=== PATIENT | female | born 1950 | race Hispanic/Latino ===

== ENCOUNTER 2020-07-01 12:18 | Emergency (ER) | payer MEDICARE, BC ==
[~2020-07-01] VITALS: Ht 152.4 cm; Wt 57.6 kg
--- NOTE | 2020-07-01 12:36 | Emergency Department Note ---
History of Present Illnes History of Present Illness Chief Complaint: General Medicine Complaints History of Present Illness This is a 69 year old female Chief Complaint Comment Patient in from home with reports of head and neck pain that started after a mechanical slip and fall at home. Patient denies LOC, dizziness, and use of blood thinners. Patient reports she had a large "goose egg" on the back of her head. 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 Any updates have been documented here. Past Medical History Recent Fever: No Clinical Suspicion of Infectio: No New/Unexplained Change in Ment: No Past Medical History: Hypertension, CVA, TIA, Hypothyroidism, Hyperlipedemia Past Surgical History: Cholecysctectomy, Appendectomy, Hysterectomy Other Surgery: Ovarian cyst removal at age 19 Other Any Pre-Existing Lines (PICC,: No Review of Systems Review of Systems Constitutional: Reports no symptoms EENTM: Reports as per HPI Cardiovascular: Reports no symptoms Respiratory: Reports no symptoms Gastrointestinal: Reports no symptoms Genitourinary: Reports no symptoms Musculoskeletal: Reports no symptoms Integumentary: Reports no symptoms Neurological: Reports no symptoms Psychological: Reports no symptoms Endocrine: Reports no symptoms Hematological/Lymphatic: Reports no symptoms Physical Exam Related Data Allergies: Coded Allergies: iodine (Verified Allergy, Severe, hives, 07/01/20) prednisone (Verified Allergy, Intermediate, hives, 07/01/20) codeine (Verified Allergy, Unknown, 07/01/20) Triage Vital Signs Vital Signs Date Time Temp Pulse Resp B/P (MAP) Pulse Ox O2 Delivery O2 Flow Rate FiO2 07/01/20 12:23 98.2 58 16 138/57 100 Room Air Vital signs reviewed: Yes Physical Exam CONSTITUTIONAL Constitutional: Present well-developed, Present well-nourished HENT HENT: Present normocephalic, Present oropharynx clear/moist, Present nose normal; Absent atraumatic (Mild bump to posterior head/occipital scalp) HENT L/R: Present left ext ear normal, Present right ext ear normal EYES Eyes: Reports PERRL, Reports conjunctivae normal NECK Neck: Present ROM normal PULMONARY Pulmonary: Present effort normal, Present breath sounds normal CARDIOVASCULAR Cardiovascular: Present regular rhythm, Present heart sounds normal, Present capillary refill normal, Present normal rate GASTROINTESTINAL Abdominal: Present soft, Present nontender, Present bowel sounds normal GENITOURINARY Genitourinary: Present exam deferred SKIN Skin: Present warm, Present dry MUSCULOSKELETAL Musculoskeletal: Present ROM normal NEUROLOGICAL Neurological: Present alert, Present oriented x 3, Present no gross motor or sensory deficits PSYCHOLOGICAL Psychological: Present mood/affect normal, Present judgement normal Assessment & Plan Medical Decision Making MDM 69 y.o F presents for mechanical fall with head injury. She slipped on water in the kitchen and hit the back of her head. Denies LoC, no thinners. Exam shows mild hematoma to posterior scalp. Ct brain/c-spine shows no sig findings. Doubt emergent process at this time. Appropriate for DC Reassessment Reassessment time: 12:43 Reassessment Well appearing, NAD Assessment & Plan Final Impression: (1) Head contusion Depart Disposition: HOME, SELF-CARE Last Vital Signs Date Time Temp Pulse Resp B/P (MAP) Pulse Ox O2 Delivery O2 Flow Rate FiO2 07/01/20 12:23 98.2 58 16 138/57 100 Room Air HUGO OLGUIN MD Jul 01, 2020 12:36
[2020-07-01] MEDS ORDERED: FENTANYL CITRATE/PF 100MCG/2 ML INJ IV ONE (12:45)
--- NOTE | 2020-07-01 13:37 | Diagnostic Imaging Report ---
EXAMINATION: Head and cervical spine CT without contrast. HISTORY: Status post fall, head trauma, head and neck pain. COMPARISON: None. TECHNIQUE: Multidetector axial images were obtained without contrast from the foramen magnum to the vertex and through the cervical spine. Dose modulation, iterative reconstruction, and/or weight based adjustment of the mA/kV was utilized to reduce the radiation dose to as low as reasonably achievable. HEAD CT FINDINGS: Skull/scalp: Right superior occipitoparietal scalp swelling/hematoma without underlying fractures. Parenchyma: Physiologic calcification of the globi pallidi. Otherwise no areas of abnormal density. No mass, hemorrhage or CT evidence of acute vascular insult. Brain volume: Normal for age. Ventricles: No hydrocephalus or displacement. Arteries: No density suggestive of thrombus. Dural sinuses: No abnormal density. Extra-axial spaces: No abnormal density. Foramen magnum: No mass, Chiari malformation, or basilar invagination. Sella: No obvious mass. Paranasal/mastoid sinuses: Imaged portions unremarkable. CERVICAL SPINE CT FINDINGS: Alignment:Normal alignment and lordosis. Soft tissues: The thyroid gland is not well visualized, it may be hypoattenuating or surgically absent, correlation with past medical history is advised. Vertebrae: Normal height and density. No acute fracture, infection or neoplasm. Degenerative changes: C1-C2: Normal C2-C3: Interbody and posterior fusion. No stenosis. C3-C4: Bilateral facet arthrosis without stenosis. C4-C5: Normal C5-C6: Small disc osteophyte compresses formation and uncovertebral hypertrophy is minimal left. Moderate left foraminal stenosis. C6-C7: Mild uncovertebral and facet hydronephrosis. Minimal foramina narrowing. C7-T1: Normal IMPRESSION: Head CT: 1. No acute postraumatic intracranial hemorrhage. 2. Small right parieto-occipital scalp swelling/hematoma without underlying fractures. Cervical spine CT: 1. No acute fractures or dislocations. 2. Chronic degenerative changes as described. Note: Acute post traumatic spinal cord, vascular or ligamentous injury cannot adequately be assessed with CT. Signed by: Dr. Anne Andujar M.D. on 07/01/2020 1:34 PM
--- OUTSIDE RECORDS SUMMARY | 2020-07-01 14:01 | XMS REPORT | Clinical Summary ---
Author Author BELIA [facility] Address Unknown Phone Unavailable Care Team Providers Care Oxygen Equipment Technician Name Role Phone Onel Arellano MD PCP Allergies Comments Active Allergy Reactions Severity Noted Date Codeine Palpitations Low 08/20/2007 Iodine Hives 08/20/2007 Leg cramps Atorvastatin Other (See 02/20/2020 Comments) Prednisone Rash Low 05/15/2019 Medications End Date Status Medication Sig Dispensed Refills Start Date Active cloNIDine HCl (CATAPRES) Take 0.1 mg 3 09/20 0.1 MG tablet by mouth 0 every 8 (eight) hours as needed . Active levothyroxine (SYNTHROID, TAKE 1 TABLET 0 LEVOTHROID) 100 MCG BY MOUTH 9 tablet DAILY IN THE MORNING Active simvastatin (ZOCOR) 20 MG TK 1 T PO 0 09/16 tablet QHS 0 Active aspirin 81 MG EC tablet Take 81 mg by 0 mouth daily. Active ALPRAZolam (XANAX) 0.25 Take 0.25 mg 0 MG tablet by mouth every night as needed for Anxiety. Active hydrALAZINE (APRESOLINE) Take 25 mg by 0 10/16 25 MG tablet mouth 0 nightly. Active olmesartan (BENICAR) 20 Take 20 mg by 0 MG tablet mouth. 0 Active BYSTOLIC 5 mg tablet 0 0 02/20/2020 Discontinued valsartan (DIOVAN) 320 MG TK 1 T PO D 5 07/17 tablet 9 02/20/2020 Discontinued metoprolol (TOPROL-XL) 50 TK 1 T PO QD 3 09/17 MG 24 hr tablet 0 Active Problems Not on file Encounters Care Team Description Date Type Specialty Moises Lagunas MD Hypertension, unspecified type (Primary Dx); Uncontrolled hypertension 02/20/2020 Emergency Emergency Medicine 02/20/2020 Orders Only General Internal Ut dicine 02/20/2020 Travel Quinton Perkins MD Right facial numbness (Primary Dx); Hypertension, uncontrolled; Acute right eye pain; History of anxiety; Hyperlipidemia, unspecified hyperlipidemia type 10/21/2019 Emergency Emergency Medicine 10/21/2019 Travel Ajay Vann MD Elevated blood pressure reading (Primary Dx) 10/16/2019 Emergency Emergency Medicine 10/16/2019 Orders Only General Internal Ut dicine 10/16/2019 Travel after 07/01/2019 Social History Date Tobacco Use Types Packs/Day Years Used Never Smoker Smokeless Tobacco: Never Used Drinks/Week oz/Week Comments Alcohol Use Yes Sex Assigned at Date Recorded Not on file Last Filed Vital Signs Reading Time Taken Comments Vital Sign 145/82 02/20/2020 6:30 AM CDT Blood Pressure 52 02/20/2020 6:30 AM CDT Pulse 36.8 C (98.3 F) 02/20/2020 1:48 AM CDT Temperature 18 02/20/2020 6:30 AM CDT Respiratory Rate 99% 02/20/2020 5:48 AM CDT Oxygen Saturation - - Inhaled Oxygen Concentration 59 kg (130 lb) 02/20/2020 1:48 AM CDT Weight 152.4 cm (5') 02/20/2020 1:48 AM CDT Height 25.39 02/20/2020 1:48 AM CDT Body Mass Index Plan of Treatment Health Maintenance Due Date Last Done Comments BREAST CANCER SCREENING 1950 COLON CANCER SCREENING 1948 COLONOSCOPY Medicare IPPE (WELCOME TO 09/16/2019 MEDICARE) INFLUENZA VACCINE (#1) 2020 07/08/2019, 06/03/2018, 07/04/2017, Additional history exists PNEUMOCOCCAL 65+ YRS Completed 05/10/2015, 03/08/2014 Procedures Comments Procedure Name Priority Date/Time Associated Diag nosis REPORT OF PROCEDURE - 02/24/2020 ENDOSCOPY SCAN 4:31 PM CDT CBC W/PLT COUNT & AUTO STAT 02/20/2020 DIFFERENTIAL 3:44 AM CDT TROPONIN I STAT 02/20/2020 3:44 AM CDT COMPREHENSIVE METABOLIC STAT 02/20/2020 PANEL 3:44 AM CDT CBC W/PLT COUNT & AUTO STAT 02/20/2020 DIFFERENTIAL 3:44 AM CDT ECG 12-LEAD Routine 02/20/2020 1:58 AM CDT Procedure Note - Interface, External Ris In - 02/23/2020 5:48 AM CDT Ventricula r Rate 51 BPM Atrial Rate 51 BPM P-R Interval 194 ms QRS Duration 96 ms Q-T Interval 450 ms QTC Calculatio n(Bazett) 414 ms P Shannon 76 degrees R Shannon -20 degrees T Shannon -10 degrees Sinus bradycardi a Voltage criteria for left ventricula r hypertroph y Nonspecifi c ST and T wave abnormalit y Abnormal ECG When compared with ECG of 0 00:21, No significan t change was found ECG 12-LEAD STAT 02/20/2020 1:58 AM CDT ED ECG INTERPRETATION Routine 02/20/2020 1:48 AM CDT CBC W/PLT COUNT & AUTO STAT 10/21/2019 DIFFERENTIAL 1:33 PM MILK DRIVER CBC W/PLT COUNT & AUTO STAT 10/21/2019 DIFFERENTIAL 1:33 PM MILK DRIVER BASIC METABOLIC PANEL (7) STAT 10/21/2019 1:[address] BRAIN WITHOUT IV STAT 10/21/2019 CONTRAST 11:42 AM MILK DRIVER REPORT OF PROCEDURE - 10/19/2019 ENDOSCOPY SCAN 5:20 PM MILK DRIVER XR CHEST 1 VIEW STAT 10/16/2019 PORTABLE/BEDSIDE 12:56 AM MILK DRIVER ED ECG INTERPRETATION Routine 10/16/2019 12:49 AM MILK DRIVER ECG 12-LEAD Routine 10/16/2019 12:21 AM MILK DRIVER Procedure Note - Interface, External Ris In - 10/16/2019 4:38 AM MILK DRIVER Ventricula r Rate 65 BPM Atrial Rate 65 BPM P-R Interval 194 ms QRS Duration 108 ms Q-T Interval 412 ms QTC Calculatio n(Bazett) 428 ms P Shannon 34 degrees R Shannon -10 degrees T Shannon 22 degrees Normal sinus rhythm Moderate voltage criteria for LVH, may be normal variant T wave abnormalit y, consider anterior ischemia Abnormal ECG When compared with ECG of 17:46, Premature ventricula r complexes are no longer Present ECG 12-LEAD STAT 10/16/2019 12:21 AM MILK DRIVER after 07/01/2019 Results * EKG-SCANNED (02/24/2020 4:31 PM CDT) Only the most recent of 2 results within the time period is included. Narrative Performed At This result has an attachment that is n ot available. * CBC with platelet count + automated diff (02/20/2020 3:44 AM CDT) Only the most recent of 2 results within the time period is included. WBC 10.8 (H) 3.5 - 10.5 K/L [facility] RBC 4.21 3.93 - 5.22 M/L [facility] Hemoglobin 12.7 11.2 - 15.7 GM/DL [facility] Hematocrit 38.8 34.1 - 44.9 % [facility] MCV 92.2 79.4 - 94.8 fL [facility] MCH 30.2 25.6 - 32.2 pg [facility] MCHC 32.7 32.2 - 35.5 GM/DL [facility] RDW 12.2 11.7 - 14.4 % [facility] Platelets 296 150 - 450 K/CU MM [facility] MPV 9.5 9.4 - 12.3 fL [facility] nRBC 0 0 - 0 /100 WBC [facility] % Neutros 52 % [facility] % Lymphs 36 % [facility] % Monos 8 % [facility] % Eos 4 % [facility] % Baso 1 % [facility] # Neutros 5.62 1.56 - 6.13 K/L [facility] # Lymphs 3.90 (H) 1.18 - 3.74 K/L [facility] # Monos 0.82 (H) 0.24 - 0.36 K/L [facility] # Eos 0.40 (H) 0.04 - 0.36 K/L [facility] # Baso 0.05 0.01 - 0.08 K/L [facility] Immature 0 0 - 1 % [facility] Specimen Blood Performing Organization Address [facility] [address] [place] [address] [facility] * Troponin I (02/20/2020 3:44 AM CDT) Troponin I <0.01 0.00 - 0.03 ng/mL [facility] Specimen Blood Narrative Performed At Troponin I (TnI) levels must be interpreted in the co ntext of the presenting [facility] symptoms and the clinical findings. Elevated TnI leve ls indicate myocardial [facility] damage, but are not specific for ischem ic heart disease. Elevated TnI levels are seen in patients with other cardiac con ditions (including myocarditis and congestive heart failure), and slight T nI elevations occur in patients with other conditions, including sepsis, vinod al failure, acidosis, acute neurological disease, and persistent tachyarrhythmia . Diamond Wheel Edger ID - LUPILLO Menon Performing Organization Address [facility] [address] [place] [address] [facility] * Comprehensive metabolic panel (02/20/2020 3:44 AM CDT) Protein, Total 7.6 6.0 - 8.3 gm/dL [facility] Albumin 4.3 3.5 - 5.0 g/dL [facility] Alkaline 84 40 - 150 U/L [facility] Total Bilirubin 0.3 0.2 - 1.2 mg/dL [facility] Sodium 139 136 - 145 meq/L [facility] Potassium 3.7 3.5 - 5.1 meq/L [facility] Chloride 103 98 - 107 meq/L [facility] CO2 27 22 - 29 meq/L [facility] BUN 19 7 - 21 mg/dL [facility] Creatinine 0.74 0.57 - 1.25 mg/dL [facility] Glucose 104 70 - 105 mg/dL [facility] Calcium 10.1 8.4 - 10.2 mg/dL [facility] AST 18 5 - 34 U/L [facility] ALT 17 6 - 55 U/L [facility] EGFR 77Comment: ESTIMATED GFR IS mL/min/1.[address] [facility] NOT ACCURATE CREATININE [facility] CLEARANCE IN PREDICTING MEDICAL CENTER GLOMERULAR FILTRATION RATE. ESTIMATED GFR IS NOT APPLICABLE FOR DIALYSIS PATIENTS. Specimen Blood Narrative Performed At Diamond Wheel Edger ID - LUPILLO W [facility] Performing Organization Address City/State/Zipcode Ph one Number [facility] [address] [place], [place] [address] [facility]ENTER * ECG 12 lead (02/20/2020 1:58 AM CDT) Only the most recent of 2 results within the time period is included. Specimen Narrative Performed At Ventricular Rate 51 BPM [facility] Atrial Rate 51 BPM P-R Interval 194 ms QRS Duration 96 ms Q-T Interval 450 ms QTC Calculation(Bazett) 414 ms P Shannon 76 degrees R Shannon -20 degrees T Shannon -10 degrees Sinus bradycardia Voltage criteria for left ventricular h ypertrophy Nonspecific ST and T wave abnormality Abnormal ECG When compared with ECG of 16-OCT-2019 0 0:21, No significant change was found Confirmed by MD LIMA JOSEPH P ([id number]) on 02/23/2020 7:21:18 AM Procedure Note Interface, External Ris In - 02/23/2020 7:21 AM CDT Ventricular Rate 51 BPM Atrial Rate 51 BPM P-R Interval 194 ms QRS Duration 96 ms Q-T Interval 450 ms QTC Calculation(Bazett) 414 ms P Shannon 76 degrees R Shannon -20 degrees T Shannon -10 degrees Sinus bradycardia Voltage criteria for left ventricular hypertrophy Nonspecific ST and T wave abnormality Abnormal ECG When compared with ECG of 16-OCT-2019 00:21, No significant change was found Confirmed by MD LIMA JOSEPH P ([id number]) on 02/23/2020 7:21:18 AM Performing Organization Address City/State/Zipcode Ph one Number [facility] * ECG/EKG Interpretation (02/20/2020 1:48 AM CDT) Only the most recent of 2 results within the time period is included. Narrative Performed At Moises Lagunas MD 02/29/20 6:18 AM ECG/EKG Interpretation Date/Time: 02/29/2020 6:17 AM Performed by: Moises Lagunas MD Authorized by: Moises Lagunas M D The ECG was interpreted by ED physician . The ECG is interpreted as sinus bradycardia. Conduction: conduction nor mal. ST segments normal. T-wave inversion in lead(s) III and aVF. T-wav e flattening in lead(s) V1, V2 and V3. Shannon is normal. Clinical Impression: abnormal ECGCommen ts: Similar in appearance as 1-20 * Basic Metabolic Panel (10/21/2019 1:33 PM MILK DRIVER) Sodium 143 136 - 145 meq/L [facility] Potassium 4.8 3.5 - 5.1 meq/L [facility] Chloride 110 (H) 98 - 107 meq/L [facility] CO2 25 22 - 29 meq/L [facility] BUN 14 7 - 21 mg/dL [facility] Creatinine 0.69 0.57 - 1.25 mg/dL [facility] Glucose 101 70 - 105 mg/dL [facility] Calcium 9.9 8.4 - 10.2 mg/dL [facility] EGFR 84Comment: ESTIMATED GFR IS mL/min/1.[address] [facility] NOT ACCURATE CREATININE [facility] CLEARANCE IN PREDICTING [facility]ICAL [facility]ENTER GLOMERULAR FILTRATION RATE. ESTIMATED GFR IS NOT APPLICABLE FOR DIALYSIS PATIENTS. Specimen Blood Narrative Performed At Diamond Wheel Edger ID - [facility]OOK[place]NN [facility] Diamond Wheel Edger ID - MARILIN [facility] Performing Organization Address City/State/Zipcode Ph one Number [address] [facility] * CT brain without IV contrast (10/21/2019 11:42 AM MILK DRIVER) Specimen Narrative Performed At FINAL REPORT [facility] CT, BRAIN, WITHOUT CONTRAST INDICATION: EYE PAIN EYE PAIN, FACIAL NUMBNESS TECHNIQUE: Noncontrast axial imaging wa s obtained from the vertex to the skull base. Axial images were recon structed using a bone algorithm. DOSE REDUCTION: Dose modulation, iterat pablo reconstruction, and/or weight-based adjustment of the mA/kV wa s utilized to reduce the radiation dose to as low as reasonably achievable. COMPARISON: None. FINDINGS: Cerebral parenchyma: Diffuse parenchyma l volume loss. Appearance of the white matter suggests chronic micro vascular disease. Midline structures: Normally positioned . Cerebellum and brainstem: Commensurate volume loss. Ventricles: Normal volume. Extra-axial spaces: Unremarkable. Calvarium and skull base: Intact. Paranasal sinuses and mastoid air cells : Visible chambers are clear. Orbital contents: Included portions unr emarkable. Additional findings: None. IMPRESSION: Chronic involutional changes without ac [place] intracranial abnormality. If there is persistent clinical concern for intracranial pathology, MR examination is recommended for furth er characterization. Signed: JR Jiménez Robert MD Report Verified Date/Time: 10/21/2019 11:42:31 Reading Location: [facility] C013 Neuro Re ading Room Procedure Note Interface, External Ris In - 10/21/2019 11:44 AM MILK DRIVER FINAL REPORT CT, BRAIN, WITHOUT CONTRAST INDICATION: EYE PAIN EYE PAIN, FACIAL NUMBNESS TECHNIQUE: Noncontrast axial imaging was obtained from the vertex to the skull base. Axial images were reconstructed using a bone algorithm. DOSE REDUCTION: Dose modulation, iterative reconstruction, and/or weight-based adjustment of the mA/kV was utilized to reduce the radiation dose to as low as reasonably achievable. COMPARISON: None. FINDINGS: Cerebral parenchyma: Diffuse parenchymal volume loss. Appearance of the white matter suggests chronic microvascular disease. Midline structures: Normally positioned. Cerebellum and brainstem: Commensurate volume loss. Ventricles: Normal volume. Extra-axial spaces: Unremarkable. Calvarium and skull base: Intact. Paranasal sinuses and mastoid air cells: Visible chambers are clear. Orbital contents: Included portions unremarkable. Additional findings: None. IMPRESSION: Chronic involutional changes without acute intracranial abnormality. If there is persistent clinical concern for intracranial pathology, MR examination is recommended for further characterization. Signed: JR Jiménez Robert MD Report Verified Date/Time: 10/21/2019 11:42:31 Reading Location: [address] Neuro Reading Room Performing Organization Address City/State/Zipcode Ph one Number [facility] * XR chest 1 view portable / bedside (10/16/2019 12:56 AM MILK DRIVER) Specimen Narrative Performed At FINAL REPORT [facility] INDICATION: PALPITATIONS COMPARISON: 01/21/2006 TECHNIQUE: Single frontal view of the c hest. FINDINGS: Lungs and pleura: Mildly hypoinflated l ungs without consolidation. No effusion. Heart and mediastinum: Normal heart siz e. Unremarkable mediastinal contours. Osseous structures: No acute abnormalit y. Other: None. IMPRESSION: No acute intrathoracic abnormality. Signed: Katharine Calle MD Report Verified Date/Time: 10/16/2019 01:12:57 Procedure Note Interface, External Ris In - 10/16/2019 1:15 AM MILK DRIVER FINAL REPORT INDICATION: PALPITATIONS COMPARISON: 01/21/2006 TECHNIQUE: Single frontal view of the chest. FINDINGS: Lungs and pleura: Mildly hypoinflated lungs without consolidation. No effusion. Heart and mediastinum: Normal heart size. Unremarkable mediastinal contours. Osseous structures: No acute abnormality. Other: None. IMPRESSION: No acute intrathoracic abnormality. Signed: Katharine Calle MD Report Verified Date/Time: 10/16/2019 01:12:57 Performing Organization Address City/State/Zipcode Ph one Number [facility] after 07/01/2019 Insurance Type Payer Benefit Subscriber ID Effective Phone Address Plan / Dates Group [employer] KELSEYCARE [id number] 2019-P MEDICARE resent ADV PPO BLUE CROSS/BLUE SHIELD BCBS FED [id number] 2007-P [address] [place] [address] DAVID johnie (Home) [place] [address]
--- OUTSIDE RECORDS SUMMARY | 2020-07-01 14:01 | XMS REPORT | Continuity of Care Document ---
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 LEFT SIDED NUMBNESS Active 08/27/2019 [facility] 786.50 Active 12/04/2012 [facility] UNK Active 0 12/04/2012 [facility] PVC Active 0 11/10/2012 [facility] HYPERTENSION Active 10/20/2012 [facility] Cholecystectomy Active Problem 12/07/2012 [facility] [place] HTN - Hypertension Resolved Problem 12/07/2012 [facility] [place] Hysterectomy Active Problem 12/07/2012 [facility] Palpitations Resolved Problem 12/07/2012 [facility] [place] Suspension of bladder Active Problem 12/07/2012 [facility] [place] Cholecystectomy (procedure) Ac tive Problem [facility] Hypertensive disorder, systemic arterial (disorder) Active Problem 08/29/2019 [facility] Hyperlipidemia (disorder) Acti ve Problem [facility] Hypothyroidism (disorder) Acti ve Problem [facility] Hysterectomy (procedure) Active Problem 08/29/2019 [facility] Palpitations (finding) Resolved Problem 08/29/2019 [facility] Cystopexy (procedure) Active Problem 08/29/2019 [facility] ANESTHESIA OF SKIN Active [facility] Medications Medication Details Route Status Patient Instructions Ordering Provider Order Date Source Synthroid Notes: (Same as:Levo throid, Synthroid) No Longer Active 08/28/2019 [facility] Simvastatin Notes: (Same as: Z ocor) Inactive 08/28/2019 [facility] Amlodipine Notes: (Same as: No rvasc) Inactive 08/27/2019 [facility] Aspirin 81 MG Chewable Tablet Notes: Take with food. Inactive 08/27/2019 [facility] metoprolol tartrate Notes: (Sa me as: Lopressor) Inactive 08/27/2019 [facility] valsartan Notes: Same as Diovan Inactive 08/27/2019 [facility] Saline Flush 0.9% Notes: (Same as: BD Posiflush) Inactive 08/27/2019 [facility] Amlodipine 2.5 mg, PO, Daily, 0 Refill(s) Active 08/27/2019 [facility] valsartan 320 mg oral tablet 3 20 mg = 1 tab, PO, Daily, # 30 tab, 0 Refill(s) Active 08/27/2019 [facility] Simvastatin 20 mg, PO, Bedtime , # 30 tab, 0 Refill(s) Active 08/27/2019 [facility] Saline Flush 0.9% Notes: (Same as: BD Posiflush) Inactive 08/27/2019 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 Diovan 160 mg, 1 tab, Route: P O, Drug form: TAB, Daily, Dosing Weight 59.545, kg, Start date: 11/19/12 9:00:00, Duration: 30 day, Stop date: 12/18/12 9:00:00 PO No Longer Active [place] 11/19/2012 [facility]ter Toprol-XL 50 mg oral tablet, extended release 50 mg, 1 tab, Route: PO, Drug form: ERTAB, Daily, Start date: 11/19/12 9:00:00, Duration: 30 day, Stop date: 12/18/12 9:00:00 PO No Longer Active [place] 11/19/2012 [facility] aspirin 81 mg tablet, chewable 81 mg, 1 tab, Route: PO, Drug form: CHEWTAB, Daily, Dosing Weight 59.545, kg, Start date: 11/19/12 9:00:00, Duration: 30 day, Stop date: 12/18/12 9:00:00 PO No Longer Active [place] 11/19/2012 [facility] Synthroid 100 microgram, 1 tab , Route: PO, Drug form: TAB, Q630AM, Dosing Weight 59.545, kg, Start date: 11/19/12 6:30:00, Duration: 30 day, Stop date: 12/18/12 6:30:00 PO No Longer Active [place] 11/19/2012 [facility] Saline Flush 0.9% 5 ml, Route: IVP, Drug Form: INJ, Dosing Weight 59.545, kg, Q12H, Start date: 11/18/12 21:00:00, Duration: 30 day, Stop date: 12/18/12 9:00:00 IVP No Longer Active [place] 11/19/2012 [facility]ter Motrin 400 mg, 1 tab, Route: P O, Drug form: TAB, Q4H, Dosing Weight 59.545, kg, PRN Pain, Start date: 11/18/12 17:53:00, Duration: 30 day, Stop date: 12/18/12 17:52:00 PO No Longer Active [facility] 11/18/2012 [facility] nter morphine Sulfate 2 mg, 1 mL, R oute: IV, Drug form: INJ, Q1H, Dosing Weight 59.545, kg, PRN Pain, Start date: 11/18/12 11:15:00, Duration: 30 day, Stop date: 12/18/12 12:14:00 IV No Longer Active [place] 11/18/2012 [facility] nitroglycerin SL Tab 0.4 mg, 1 tab, Route: SL, Drug form: TAB, Q5Min, Dosing Weight 59.545, kg, PRN Chest Pain, Start date: 11/18/12 10:13:00, Duration: 3 doses or times, Stop date: 11/19/12 0:00:00 SL No Longer Active [place] 11/18/2012 [facility] Saline Flush 0.9% 5 ml, Route: IVP, Drug Form: INJ, Dosing Weight 59.545, kg, PRN, PRN Line Flush, Start date: 11/18/12 10:13:00, Duration: 30 day, Stop date: 12/18/12 11:12:00 IVP No Longer Active [place] 11/18/2012 [facility] influenza virus vaccine, inactivated 0.5 mL, Route: IM, Drug Form: INJ, Start date: 11/18/12 9:00:00, Stop date: 11/18/12 9:00:00 IM No Longer Active SYSTEM 01/2013 [facility] Metoprolol Tartrate 50 mg oral tablet 50 mg, 1 tab, PO, Daily, Substitution Allowed PO Active [place] 11/18/2012 [facility] nter K-Dur 20 40 mEq, 2 tab, Route: PO, Drug form: ERTAB, ONCE, Dosing Weight 61.364, kg, Priority: STAT, Start date: 10/21/12 21:43:00, Stop date: 10/21/12 21:43:00 PO No Longer Active [facility] 10/22/2012 [facility] magnesium sulfate 1 gm, 100 mL , Route: IV, Drug form: INJ, ONCE, Dosing Weight 61.364, kg, Priority: STAT, Start date: 10/21/12 21:43:00, Stop date: 10/21/12 21:43:00 IV No Longer Active [facility] 10/22/2012 [facility] Xanax 0.5 mg oral tablet 0.5 m g, 2 tab, Route: PO, Drug form: TAB, ONCE, Dosing Weight 61.364, kg, Start date: 10/21/12 20:12:00, Stop date: 10/21/12 20:12:00 PO No Longer Active [facility] 10/22/2012 [facility] metoprolol tartrate 25 mg, 1 t ab, Route: PO, Drug form: TAB, ONCE, Dosing Weight 61.364, kg, Priority: STAT, Start date: 10/21/12 20:12:00, Stop date: 10/21/12 20:12:00 PO No Longer Active [facility] 10/22/2012 [facility] Saline Flush 0.9% 5 mL, Route: IVP, Drug Form: INJ, Dosing Weight 61.364, kg, Q8H, PRN Line Flush, Start date: 10/21/12 20:10:00, Duration: 30 day, Stop date: 11/20/12 20:09:00, Administer at least once every 8 hoursAdminister at least once every 8 hours IVP No Longer Active [facility] 10/22/2012 [facility] Allergies, Adverse Reactions, Alerts Substance Category Reaction Severity Reaction type Status Date Reported Comments Source codeine Assertion Drug allergy Active [facility] iodine Assertion Drug allergy Active [facility] predniSONE Assertion Drug allergy Active [facility] Immunizations Immunization Date Given Site Status Last Updated Comments Source influenza virus vaccine, inactivated 11/18/2012 Not Given Rosy [facility] Results Order Name Results Value Reference Range Date Interpretation Comments Source CARDIAC ENZYMES Troponin-I <0.02 0.00 - 0.40 08/27/2019 [facility] CARDIAC ENZYMES Troponin-I <0.02 0.00 - 0.40 08/27/2019 [facility] LIPIDS Trig 151 <=149 mg/dL 08/27/2019 [facility] LIPIDS Chol 143 <=199 mg/dL 08/27/2019 [facility] LIPIDS HDL 49 >=61 mg/dL 08/27/2019 [facility] LIPIDS CHD Risk 2.92 3.90 - 5.80 08/27/2019 [facility] LIPIDS LDL (Calculated) 64 <=99 mg/dL 08/27/2019 [facility] LIPIDS VLDL 30 08/27/2019 [facility] URINE AND STOOL UA Turbidity Clear (08/27/19 3:14 AM) Clear 08/27/2019 [facility] URINE AND STOOL UA Spec Grav 1.005 <=1.030 08/27/2019 [facility] URINE AND STOOL UA pH 7.0 5.0 - 8.0 08/27/2019 [facility] URINE AND STOOL UA Protein Negative mg/dL Negative mg/dL 08/27/[address] [facility] [address] URINE AND STOOL UA Glucose Negative mg/dL Negative mg/dL 08/27/[address] [facility] [address] URINE AND STOOL UA Ketones Negative mg/dL Negative mg/dL 08/27/[address] [facility] [address] URINE AND STOOL UA Bili Negative *NA* (08/27/19 3:14 AM) Negative 08/27/2019 [facility] URINE AND STOOL UA Blood Small *ABN* (08/27/19 3:14 AM) Negative 08/27/2019 [facility] URINE AND STOOL UA Nitrite Negative (08/27/19 3:14 AM) Negative 08/27/2019 [facility] URINE AND STOOL UA Leuk Est Negative (08/27/19 3:14 AM) Negative 08/27/2019 [facility] URINE AND STOOL UA Sq Epi Occasional /LPF Few /LPF 08/27/2019 [facility] URINE AND STOOL UA WBC <1 0 - 5 08/27/2019 [facility] URINE AND STOOL UA RBC 1 0 - 2 08/27/2019 [facility] URINE AND STOOL UA Color Colorless 08/27/2019 [facility] URINE AND STOOL UA Urobilinogen <=1.0 mg/dL 0.1 - 1.0 08/27/2019 [facility] CARDIAC ENZYMES BNP 12 <=100 pg/mL 08/27/2019 [facility] CARDIAC ENZYMES Total CK 111 12 - 191 08/27/2019 [facility] CARDIAC ENZYMES Troponin-I <0.02 0.00 - 0.40 08/27/2019 [facility] CHEM PANEL Glucose Lvl 101 70 - 99 08/27/2019 [facility] CHEM PANEL BUN 17 7 - 22 08/27/2019 [facility] CHEM PANEL Creatinine Lvl 0.68 0.50 - 1.40 08/27/2019 [facility] CHEM PANEL Sodium Lvl 145 135 - 145 08/27/2019 [facility] CHEM PANEL Potassium Lvl 3.5 3.5 - 5.1 08/27/2019 [facility] CHEM PANEL Chloride Lvl 110 95 - 109 08/27/2019 [facility] CHEM PANEL CO2 28 24 - 32 08/27/2019 [facility] CHEM PANEL Calcium Lvl 9.0 8.5 - 10.5 08/27/2019 [facility] CHEM PANEL Total Protein 7.5 6.4 - 8.4 08/27/2019 [facility] CHEM PANEL Albumin Lvl 3.6 3.5 - 5.0 08/27/2019 [facility] CHEM PANEL ALT 31 0 - 65 08/27/2019 [facility] CHEM PANEL AST 15 0 - 37 08/27/2019 [facility] CHEM PANEL Alk Phos 97 39 - 136 08/27/2019 [facility] CHEM PANEL Bili Total 0.2 0.2 - 1.3 08/27/2019 [facility] CHEM PANEL AGAP 10.5 10.0 - 20.0 08/27/2019 [facility] CHEM PANEL B/C Ratio 25 6 - 25 08/27/2019 [facility] CHEM PANEL Globulin 3.9 2.7 - 4.2 08/27/2019 [facility] CHEM PANEL A/G Ratio 0.9 0.7 - 1.6 08/27/2019 [facility] CHEM PANEL eGFR 88 08/27/2019 Result Comment: The eGFR is calculated using the CKD-EPI formula. In most young, healthy individuals the eGFR will be >90 mL/min/1.73m2. The eGFR declines with age. An eGFR of 60-89 may be normal in some populations, particularly the elderly, for whom the CKD-EPI formula has not been extensively validated. Use of the eGFR is not recommended in the following populations:

Individuals with unstable creatinine concentrations, including patients and those with serious co-morbid conditions.

Patients with extremes in muscle mass or diet.

The data above are obtained from the National Kidney Disease Education Program (NKDEP) which additionally recommends that when the eGFR is used in patients with extremes of body mass index for purposes of drug dosing, the eGFR should be multiplied by the estimated BMI. [facility] CHEM PANEL Magnesium Lvl 2.0 1.8 - 2.4 08/27/2019 [facility] HEMATOLOGY WBC 8.5 3.7 - 10.4 08/27/2019 [facility] HEMATOLOGY RBC 4.33 4.20 - 5.40 08/27/2019 [facility] HEMATOLOGY Hgb 13.6 12.0 - 16.0 08/27/2019 [facility] HEMATOLOGY Hct 39.6 36.0 - 48.0 08/27/2019 [facility] HEMATOLOGY MCV 91.4 80.0 - 98.0 08/27/2019 [facility] MCH 31.3 27.0 - 31.0 08/27/2019 [facility] HEMATOLOGY MCHC 34.2 32.0 - 36.0 08/27/2019 [facility] HEMATOLOGY RDW 12.5 11.5 - 14.5 08/27/2019 [facility] HEMATOLOGY Platelet 296 133 - 450 08/27/2019 [facility] HEMATOLOGY MPV 7.7 7.4 - 10.4 08/27/2019 [facility] HEMATOLOGY INR 0.97 0.85 - 1.17 08/27/2019 [facility] HEMATOLOGY PT 12.7 12.0 - 14.7 08/27/2019 [facility] HEMATOLOGY PTT 38.6 22.9 - 35.8 08/27/2019 [facility] HEMATOLOGY Segs 36.7 45.0 - 75.0 08/27/2019 [facility] HEMATOLOGY Lymphocytes 46.9 20.0 - 40.0 08/27/2019 [facility] HEMATOLOGY Monocytes 9.1 2.0 - 12.0 08/27/2019 [facility] HEMATOLOGY Eosinophils 6.7 0.0 - 4.0 08/27/2019 [facility] HEMATOLOGY Basophils 0.6 0.0 - 1.0 08/27/2019 [facility] HEMATOLOGY Neutrophils # 3.1 1.5 - 8.1 08/27/2019 [facility] HEMATOLOGY Lymphocytes # 4.0 1.0 - 5.5 08/27/2019 [facility] HEMATOLOGY Monocytes # 0.8 0.0 - 0.8 08/27/2019 [facility] HEMATOLOGY Eosinophils # 0.6 0.0 - 0.5 08/27/2019 [facility] HEMATOLOGY Basophils # 0.1 0.0 - 0.2 08/27/2019 [facility] CHEMISTRY eGFR 92 12/05/2012 NA <sup>1</sup>Result Comment: The eGFR is calculated using the CKD-EPI formula. In most young, healthy individuals the eGFR will be >90 mL/min/1.73m2. The eGFR declines with age. An eGFR of 60-89 may be normal in some populations, particularly the elderly, for whom the CKD-EPI formula has not been extensively validated. Use of the eGFR is not recommended in the following populations:& lt;br/>
Individuals with unstable creatinine concentrations, including patients and those with serious co-morbid conditions.

Patients with extremes in muscle mass or diet.

The data above are obtained from the National Kidney Disease Education Program (NKDEP) which additionally recommends that when the eGFR is used in patients with extremes of body mass index for purposes of drug dosing, the eGFR should be multiplied by the estimated BMI. [facility] CHEMISTRY Glucose Lvl 103 70 - 99 12/05/2012 [place] <sup>2</sup>Interpretive Data: Adult ref erence range values reflect the clinical guidelines
of the [place] [employer]. [facility] CHEMISTRY Potassium Lvl 3.9 3.5 - 5.1 12/05/2012 Normal [facility] CHEMISTRY Sodium Lvl 142 135 - 145 12/05/2012 Normal [facility] CHEMISTRY Creatinine Lvl 0.7 0.5 - 1.4 12/05/2012 Normal [facility] CHEMISTRY CO2 28 24 - 32 12/05/2012 Normal [facility] CHEMISTRY Chloride Lvl 105 95 - 109 12/05/2012 Normal [facility] CHEMISTRY BUN 20 7 - 22 12/05/2012 Normal [facility] CHEMISTRY Calcium Lvl 9.7 8.5 - 10.5 12/05/2012 Normal [facility] CHEMISTRY AGAP 12.9 10.0 - 20.0 12/05/2012 Normal [facility] HEMATOLOGY Platelet 342 133 - 450 12/05/2012 Normal [facility] HEMATOLOGY MPV 7.7 7.4 - 10.4 12/05/2012 Normal [facility] HEMATOLOGY MCH 30.9 27.0 - 31.0 12/05/2012 Normal [facility] HEMATOLOGY MCHC 33.6 32.0 - 36.0 12/05/2012 Normal [facility] HEMATOLOGY RDW 12.6 11.5 - 14.5 12/05/2012 Normal [facility] HEMATOLOGY MCV 91.8 81.0 - 99.0 12/05/2012 Normal [facility] HEMATOLOGY Hct 42.1 36.0 - 48.0 12/05/2012 Normal [facility] HEMATOLOGY RBC 4.58 4.20 - 5.40 12/05/2012 Normal [facility] HEMATOLOGY Hgb 14.2 12.0 - 16.0 12/05/2012 Normal [facility] HEMATOLOGY WBC 7.6 3.7 - 10.4 12/05/2012 Normal [facility] HEMATOLOGY Eosinophils # 0.3 0.0 - 0.5 12/05/2012 [facility] HEMATOLOGY Basophils # 0.0 0.0 - 0.2 12/05/2012 [facility] HEMATOLOGY Lymphocytes # 2.9 1.0 - 5.5 12/05/2012 Normal [facility] HEMATOLOGY Monocytes # 0.6 0.0 - 0.8 12/05/2012 [facility] HEMATOLOGY Eosinophils 3.6 0.0 - 4.0 12/05/2012 [facility] HEMATOLOGY Basophils 0.4 0.0 - 1.0 12/05/2012 Normal [facility] HEMATOLOGY Segs-Bands # 3.7 1.5 - 8.1 12/05/2012 Normal [facility] HEMATOLOGY Monocytes 8.5 2.0 - 12.0 12/05/2012 Normal [facility] HEMATOLOGY Lymphocytes 38.4 20.0 - 40.0 12/05/2012 Normal [facility] HEMATOLOGY Segs 49.1 45.0 - 75.0 12/05/2012 Normal [facility] BLOOD BANK RESULTS ABO/Rh A POS 11/18/2012 Unknown [facility] BLOOD BANK RESULTS Antibody Scrn Negative (11/18/2012 06:00:00) 11/18/2012 Normal [facility] CHEMISTRY Magnesium Lvl 1.9 1.8 - 2.4 11/18/2012 Normal [facility] CHEMISTRY AGAP 12.9 10.0 - 20.0 11/18/2012 Normal [facility] CHEMISTRY eGFR 78 11/18/2012 NA <sup>1</sup>Result Comment: The eGFR is calculated using the CKD-EPI formula. In most young, healthy individuals the eGFR will be >90 mL/min/1.73m2. The eGFR declines with age. An eGFR of 60-89 may be normal in some populations, particularly the elderly, for whom the CKD-EPI formula has not been extensively validated. Use of the eGFR is not recommended in the following populations:& lt;br/>
Individuals with unstable creatinine concentrations, including patients and those with serious co-morbid conditions.

Patients with extremes in muscle mass or diet.

The data above are obtained from the National Kidney Disease Education Program (NKDEP) which additionally recommends that when the eGFR is used in patients with extremes of body mass index for purposes of drug dosing, the eGFR should be multiplied by the estimated BMI. [facility] CHEMISTRY Sodium Lvl 141 135 - 145 11/18/2012 Normal [facility] CHEMISTRY Potassium Lvl 3.9 3.5 - 5.1 11/18/2012 Normal [facility] CHEMISTRY Creatinine Lvl 0.8 0.5 - 1.4 11/18/2012 Normal [facility] CHEMISTRY CO2 27 24 - 32 11/18/2012 Normal [facility] CHEMISTRY BUN 17 7 - 22 11/18/2012 Normal [facility] CHEMISTRY Chloride Lvl 105 95 - 109 11/18/2012 Normal [facility] CHEMISTRY Calcium Lvl 9.7 8.5 - 10.5 11/18/2012 Normal [facility] CHEMISTRY Glucose Lvl 99 70 - 99 11/18/2012 Normal <sup>2</sup>Interpretive Data: Adult ref erence range values reflect the clinical guidelines
of the [place] [employer]. [facility] HEMATOLOGY Platelet 247 133 - 450 11/18/2012 Normal [facility] HEMATOLOGY RDW 12.6 11.5 - 14.5 11/18/2012 Normal [facility] HEMATOLOGY MPV 9.0 7.4 - 10.4 11/18/2012 Normal [facility] HEMATOLOGY RBC 4.54 4.20 - 5.40 11/18/2012 Normal [facility] HEMATOLOGY MCV 92.2 81.0 - 99.0 11/18/2012 Normal [facility] HEMATOLOGY MCHC 33.4 32.0 - 36.0 11/18/2012 Normal [facility] HEMATOLOGY Hgb 14.0 12.0 - 16.0 11/18/2012 Normal [facility] HEMATOLOGY WBC 6.8 3.7 - 10.4 11/18/2012 Normal [facility] HEMATOLOGY Hct 41.9 36.0 - 48.0 11/18/2012 Normal [facility] HEMATOLOGY MCH 30.8 27.0 - 31.0 11/18/2012 Normal [facility] HEMATOLOGY PTT 33.1 22.9 - 35.8 11/18/2012 Normal <sup>4</sup>Interpretive Data: Heparin T herapeutic Range: 57 - 92 Seconds [facility] HEMATOLOGY PT 12.9 12.0 - 14.7 11/18/2012 Normal [facility] HEMATOLOGY INR 0.95 0.85 - 1.17 11/18/2012 Normal <sup>3</sup>Interpretive Data: RECOMMEND ED RANGES FOR PROTIME INR:
2.0-3.0 for most medical and surgical thromboembolic states.
2.5-3.5 for artificial heart valves and recurrent embolism.

INR SHOULD BE USED ONLY FOR PATIENTS ON STABLE ANTICOAGULANT THERAPY. [facility] HEMATOLOGY Lymphocytes # 3.1 1.0 - 5.5 11/18/2012 [facility] HEMATOLOGY Monocytes # 0.6 0.0 - 0.8 11/18/2012 Normal [facility] HEMATOLOGY Eosinophils # 0.3 0.0 - 0.5 11/18/2012 Normal [facility] HEMATOLOGY Eosinophils 3.8 0.0 - 4.0 11/18/2012 Normal [facility] HEMATOLOGY Monocytes 8.6 2.0 - 12.0 11/18/2012 Normal [facility] HEMATOLOGY Segs-Bands # 2.8 1.5 - 8.1 11/18/2012 Normal [facility] HEMATOLOGY Basophils 0.5 0.0 - 1.0 11/18/2012 Normal [facility] HEMATOLOGY Segs 40.9 45.0 - 75.0 11/18/2012 LOW [facility] HEMATOLOGY Lymphocytes 46.2 20.0 - 40.0 11/18/2012 HI [facility] CHEMISTRY Magnesium Lvl 1.7 1.8 - 2.4 10/22/2012 LOW [facility] CHEMISTRY CK MB 1.5 0.5 - 3.6 10/22/2012 Normal [facility] CHEMISTRY Total CK 111 12 - 191 10/22/2012 Normal [facility] CHEMISTRY eGFR 92 10/22/2012 NA <sup>1</sup>Result Comment: The eGFR is calculated using the CKD-EPI formula. In most young, healthy individuals the eGFR will be >90 mL/min/1.73m2. The eGFR declines with age. An eGFR of 60-89 may be normal in some populations, particularly the elderly, for whom the CKD-EPI formula has not been extensively validated. Use of the eGFR is not recommended in the following populations:& lt;br/>
Individuals with unstable creatinine concentrations, including patients and those with serious co-morbid conditions.

Patients with extremes in muscle mass or diet.

The data above are obtained from the National Kidney Disease Education Program (NKDEP) which additionally recommends that when the eGFR is used in patients with extremes of body mass index for purposes of drug dosing, the eGFR should be multiplied by the estimated BMI. [facility] CHEMISTRY AGAP 12.9 10.0 - 20.0 10/22/2012 Normal [facility] CHEMISTRY B/C Ratio 23 6 - 25 10/22/2012 Normal [facility] CHEMISTRY Albumin Lvl 3.9 3.5 - 5.0 10/22/2012 Normal [facility] CHEMISTRY Glucose Lvl 102 70 - 99 10/22/2012 HI <sup>2</sup>Interpretive Data: Adult ref erence range values reflect the clinical guidelines
of the [place] [employer]. [facility] CHEMISTRY Chloride Lvl 107 95 - 109 10/22/2012 Normal [facility] CHEMISTRY Calcium Lvl 9.3 8.5 - 10.5 10/22/2012 Normal [facility] CHEMISTRY CO2 26 24 - 32 10/22/2012 Normal [facility] CHEMISTRY Creatinine Lvl 0.7 0.5 - 1.4 10/22/2012 Normal [facility] CHEMISTRY Sodium Lvl 142 135 - 145 10/22/2012 Normal [facility] CHEMISTRY BUN 16 7 - 22 10/22/2012 Normal [facility] CHEMISTRY Potassium Lvl 3.9 3.5 - 5.1 10/22/2012 Normal [facility] CHEMISTRY Globulin 3.9 2.0 - 4.0 10/22/2012 Normal [facility] CHEMISTRY AST 21 0 - 37 10/22/2012 Normal [facility] CHEMISTRY A/G Ratio 1.0 0.7 - 1.6 10/22/2012 Normal [facility] CHEMISTRY Bili Total 0.3 0.2 - 1.3 10/22/2012 Normal [facility] CHEMISTRY Alk Phos 99 39 - 136 10/22/2012 Normal [facility] CHEMISTRY ALT 38 0 - 65 10/22/2012 Normal [facility] CHEMISTRY Total Protein 7.8 6.4 - 8.4 10/22/2012 Normal [facility] CHEMISTRY Troponin-I <0.02 0.00 - 0.40 10/22/2012 Normal [facility] CHEMISTRY CK MB Index 1.4 0.0 - 2.5 10/22/2012 Normal [facility] HEMATOLOGY RDW 12.9 11.5 - 14.5 10/22/2012 Normal [facility] HEMATOLOGY MCHC 33.5 32.0 - 36.0 10/22/2012 Normal [facility] HEMATOLOGY Platelet 294 133 - 450 10/22/2012 Normal [facility] HEMATOLOGY MPV 8.4 7.4 - 10.4 10/22/2012 Normal [facility] HEMATOLOGY Hgb 13.4 12.0 - 16.0 10/22/2012 Normal [facility] HEMATOLOGY RBC 4.34 4.20 - 5.40 10/22/2012 Normal [facility] HEMATOLOGY MCV 92.3 81.0 - 99.0 10/22/2012 Normal [facility] HEMATOLOGY WBC 7.5 3.7 - 10.4 10/22/2012 Normal [facility] HEMATOLOGY Hct 40.0 36.0 - 48.0 10/22/2012 Normal [facility] HEMATOLOGY MCH 30.9 27.0 - 31.0 10/22/2012 Normal [facility] HEMATOLOGY Monocytes # 0.6 0.0 - 0.8 10/22/2012 Normal [facility] HEMATOLOGY Basophils # 0.1 0.0 - 0.2 10/22/2012 Normal [facility] HEMATOLOGY Lymphocytes # 3.6 1.0 - 5.5 10/22/2012 Normal [facility] HEMATOLOGY Segs-Bands # 2.9 1.5 - 8.1 10/22/2012 Normal [facility] HEMATOLOGY Basophils 0.7 0.0 - 1.0 10/22/2012 Normal [facility] HEMATOLOGY Eosinophils 4.1 0.0 - 4.0 10/22/2012 HI [facility] HEMATOLOGY Monocytes 8.3 2.0 - 12.0 10/22/2012 Normal [facility] HEMATOLOGY Lymphocytes 48.4 20.0 - 40.0 10/22/2012 HI [facility] HEMATOLOGY Eosinophils # 0.3 0.0 - 0.5 10/22/2012 Normal [facility] HEMATOLOGY Segs 38.5 45.0 - 75.0 10/22/2012 LOW [facility] Pathology Reports No Data Provided for This Section Diagnostic Reports Report Value Date Source Carotid artery Doppler bilat US PROCEDURE INFORMATION: Exam: US Duplex Bilateral Extracranial Arteries Exam date and time: 08/27/2019 5:01 PM Age: 69 years old Clinical history: /r/o TIA. Left upper extremity pain and lip numbness. TECHNIQUE: Imaging protocol: Real-time Duplex ultrasound scan of the bilateral carotid and vertebral arteries combining garcia scale, color Doppler and spectral waveform analysis. Bilateral exam. COMPARISON: BRAIN WO CONTRAST CT 08/27/2019 2:52 AM TECHNIQUE: Garcia-scale, color Doppler and spectral Doppler of the carotid arteries was performed. Any reported ICA stenoses indirectly reference the distal internal carotid diameter as the denominator for the stenosis measurement, utilizing consensus panel criteria. FINDINGS: RIGHT: Small amount of plaque in the right bulb region. ICA PSV 70 cm/sec CCA PSV 88 cm/sec ICA/CCA ratio 0.79 Vertebral flow is antegrade . External carotid artery is patent. Noted is a isoechoic nodule with possible calcification in the right thyroid lobe measuring 2.1 cm not well evaluated by this study. Recommend correlation with dedicated thyroid ultrasound. LEFT: Small amount of plaque in the left proximal internal carotid artery region. ICA PSV 61 cm/sec CCA PSV 88 cm/sec ICA/CCA ratio 0.69 Vertebral flow is antegrade . External carotid artery is patent. IMPRESSION: 1. No ultrasound evidence for hemodynami harshal significant stenosis to either carotid artery. 2. Isoechoic nodule with possible calcif ication in the right thyroid lobe not well evaluated by this study. Recommend correlation with dedicated thyroid ultrasound. Consensus panel Doppler US criteria for diagnosis of ICA stenosis: Stenosis (%) ICA PSV (cm/sec) ICA/CCA ratio <50 <125 <2.0 50-69 125-230 2.0-4.0 >70 but less than >230 >4.0 near occlusion Near occlusion High, low, or Variable undetectable Vaughn Lowry MD On 08/27/2019 17:56:43; [id number] 08/27/2019 [facility] contrast MRI PROCEDUR E INFORMATION: Exam: MR Head Without Contrast Exam date and time: 08/27/2019 2:35 PM Age: 69 years old Clinical history: Weakness, facial and other: Numbness face and tongue. ; Patient HX: High blood pressure. ; Additional info: /lue pain and lip numbness TECHNIQUE: Imaging protocol: MR of the head without contrast. COMPARISON: BRAIN WO CONTRAST CT 08/27/2019 2:52 AM FINDINGS: Brain: There is no acute cortical infarct, parenchymal hemorrhage or an intra-axial mass. 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 Ventricles: There is a minute cavum septum pellucidum. There is no hydrocephalus. Bones/joints: Unremarkable. Soft tissues: Unremarkable. Sinuses: Normal as visualized. No acute sinusitis. Mastoid air cells: Normal as visualized. No mastoid effusion. Orbits: Unremarkable. Sella: Sellar and parasellar structures are normal. There is no cerebellar tonsillar ectopia. Other vasculature: There is normal flow from the 4th portions of both vertebral arteries, the basilar artery and intracranial carotid arteries. IMPRESSION: There is no acute cortical infarct, parenchymal hemorrhage or an intra-axial mass. 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 Total DLP: 982.82 mGy-cm Radiation optimization: All CT scans at this facility use at least one of these dose optimization techniques: automated exposure control; mA and/or kV adjustment per patient size (includes targeted exams where dose is matched to clinical indication); or iterative reconstruction. COMPARISON: No relevant prior studies available. FINDINGS: Brain: Normal. No hemorrhage. Unremarkable white matter. No mass effect. Ventricles: Normal. No ventriculomegaly. Bones/joints: Unremarkable. No acute fracture. Sinuses: Visualized sinuses are unremarkable. No fluid levels. Mastoid air cells: Visualized mastoid air cells are well aerated. Soft tissues: Unremarkable. IMPRESSION: No acute intracranial abnormality. Wilbur Frazier MD On 08/27/2019 03:04:19; [id number] 08/27/2019 [facility] Chest 1view DX PROCEDURE INFOR MATION: Exam: XR Chest, 1 View Exam date and time: 08/27/2019 3:17 AM Age: 69 years old Clinical history: Pain; Additional info: Chest pain/left arm pain TECHNIQUE: Imaging protocol: XR of the chest Views: 1 view. Portable AP view COMPARISON: No relevant prior studies available. FINDINGS: Lungs: No consolidation. A 4 mm left lower lobe calcified granuloma is suggested. Pleural space: No pleural effusion. No pneumothorax. Heart/Mediastinum: Heart shadow is within normal limits. Vasculature: The pulmonary vasculature is unremarkable. Bones/joints: Unremarkable. Other findings: None IMPRESSION: No acute cardiopulmonary findings. Jojo Cohn MD On 08/27/2019 03:39:09; [id number] 08/27/2019 [facility] Consultation Notes No Data Provided for This Section Discharge Summaries No Data Provided for This Section History and Physicals No Data Provided for This Section Vital Signs Vital Sign Value Date Comments Source Temperature Oral (F) 97.7 F 08/27/2019 [facility] Heart Rate 53 08/27/2019 [facility] Respitory Rate 15 08/27/2019 [facility] Systolic (mm Hg) 150 08/27/2019 [facility] Diastolic (mm Hg) 68 08/27/2019 [facility] Temperature Oral (F) 98.3 F 08/27/2019 [facility] Heart Rate 63 08/27/2019 [facility] Respitory Rate 16 08/27/2019 [facility] Systolic (mm Hg) 143 08/27/2019 [facility] Diastolic (mm Hg) 72 08/27/2019 [facility] Systolic (mm Hg) 145 08/27/2019 [facility] Diastolic (mm Hg) 70 08/27/2019 [facility] Temperature Oral (F) 98 F 08/27/2019 [facility] Heart Rate 61 08/27/2019 [facility] Respitory Rate 17 08/27/2019 [facility] Height 154.94 cm 08/27/2019 [facility] Weight 60.455 08/27/2019 [facility] BMI Calculated 25.18 08/27/2019 [facility] Height 154.94 cm 08/27/2019 [facility] BMI Calculated 25.18 08/27/2019 [facility] Weight 60.455 08/27/2019 [facility] Height 154.94 cm 12/05/2012 [facility] Weight 61.364 12/05/2012 [facility] Systolic (mm Hg) 117 11/19/2012 [facility] Respitory Rate 16 11/19/2012 [facility] Temperature Oral (F) 97.8 F 11/19/2012 [facility] Diastolic (mm Hg) 56 11/19/2012 [facility] Systolic (mm Hg) 108 11/19/2012 [facility] Diastolic (mm Hg) 56 11/19/2012 [facility] Systolic (mm Hg) 123 11/19/2012 [facility] Diastolic (mm Hg) 59 11/19/2012 [facility] Temperature Oral (F) 97.2 F 11/19/2012 [facility] Temperature Oral (F) 97 F 11/18/2012 [facility] Weight 59.545 11/18/2012 [facility] Height 154.94 cm 11/18/2012 [facility] Weight 61.364 10/22/2012 [facility] Height 154.94 cm 10/22/2012 [facility] Encounters Location Location Details Encounter Type Encounter Number Reason For Visit Attending Provider ADM Date DC Date Status Source [facility] Emergency [id number] DORINA JIMÉNEZ 10/21/2012 10/22/2012 Discharged [facility] STEPHEN [id number] SONNY SALAZAR 11/18/2012 11/19/2012 Discharged [facility] STEPHEN [id number] COLT RYAN 12/05/2012 12/05/2012 Discharged [facility] Observation [id number] Mathieu Lopez 08/27/2019 08/28/2019 [facility] Procedures Procedure Code Date Perfomer Comments Source Abdominal hysterectomy and excision of p eriuterine tissue [id number] [facility] Suspension of bladder [id number] [facility] Abdominal hysterectomy and excision of p eriuterine tissue [id number] [facility] Suspension of bladder [id number] 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 Symptoms now resolved. Rule out stroke/TIA. CT head negative for acute intracranial abnormality. We will order MRI. Consult neurology. Appreciate further recommendations. We will resume home blood pressure medications and titratefor better blood pressure control. Reconcile medications. Per protocol Patient is stable at this time. Anticipate hospitalization for at least one midnight. Discharge home pending clinical improvement. Time spent on H&P greater than 40 minutes. MD Mark Canalesurnist 08/28/2019 [facility] Plan of Care No Data Provided for This Section Social History Social History Date Source Social History TypeResponse Alcohol Current, Type Wine. Frequency: 1-2 times per month. Smoking Status Never smoker; Exposure to Tobacco Smoke None; Cigarette Smoking Last 365 Days No; Reg Smoking Cessation Counseling No entered on: 08/27/19 08/27/2019 [facility] Family History No Data Provided for This Section Advance Directives No Data Provided for This Section Functional Status No Data Provided for This Section
--- OUTSIDE RECORDS SUMMARY | 2020-07-01 14:01 | XMS REPORT | Continuity of Care Document ---
Author Author [facility] t Organization [facility] Address [address] [place] [id number] Phone Unavailable Care Team Providers Care Patient Svcs Mgr Name Role Phone Eileen MEJIAS, Sheryl Sykes PCP Rojelio Waterman Attphys Unavailable Bebo MEJIAS, Adama De Leon Attphys ADAMA LAGUNAS Attphys Unavailable Sadie Moody MD Attphys Sadie MOODY Attphys Unavailable Edwar MEJIAS, Robin Moss Attphys Efe Lopez Attphys Efe Lopez Admphys Payers Payer Name Policy Type Policy Number Effective Date Expiration Date Merle mehreen ALLEGRACAREKELSEYCARE MEDICARE [id number]- [id number] 2019 00:00:00 [facility] BLUE CROSS/BLUE SHIELDBCBS [id number] [place] [id number], [place] [address]HBV [id number] 2007 00:00:00 [facility] Problems Condition Name Condition Details Condition Category Status Onset Date Resolution Date Last Treatment Date Treating Clinician Comments Source OTHER OTHE R Active 08/27/2019 [facility] Active 2019-08-27 00:00:00 2019-08-27 03:41:00 [facility] LEFT SIDED NUMBNESS LEFT SIDED NUMBNESS Active 08/27/2019 [facility] Active 2019-08-27 00:00:00 2019-08-28 15:10:00 [facility] Lew 786.50 786. 50 Active 12/04/2012 [facility] Active 2012-12-04 00:00:00 2012-12-05 07:15:00 [facility] UNK UNK Active 12/04/2012 [facility] Active 2012-12-04 00:00:00 2012-12-04 16:43:00 emorisheryl Lew PVC PVC Active 11/10/2012 [facility] Diagnosis Active 2012-11-10 00:00:00 2012-11-18 05:35:00 [facility] HYPERTENSION HYPE RTENSION Active 10/20/2012 [facility] Active 2012-10-20 08:00:00 2012-10-21 20:37:00 [facility] HTN - Hypertension HTN - Hypertension Resolved Problem 12/07/2012 [facility] Problem Resolved 2012-12-07 22:16:17 [facility] Palpitations Palp itations Resolved Problem 12/07/2012 [facility] Problem Resolved 2012-12-07 22:16:17 [facility] Palpitations (finding) Palp itations (finding) Resolved Problem 08/29/2019 [facility] Problem Resolved 2019-08-29 23:30: 43 [facility] Cholecystectomy Chol ecystectomy Active Problem 12/07/2012 [facility] Problem Active 2012-12-07 22:16:17 [facility] Hysterectomy Hyst erectomy Active Problem 12/07/2012 [facility] Problem Active 2012-12-07 22:16:17 [facility] Suspension of bladder Susp ension of bladder Active Problem 12/07/2012 [facility] Problem Active 2012-12-07 22:16:17 [facility] Cholecystectomy (procedure) Ch olecystectomy (procedure) Active Problem 08/29/2019 [facility] Problem Active 2019-08-29 23:30:43 [facility] Hypertensive disorder, systemic arterial (disorder) Hypertensive disorder, systemic arterial (disorder) Active Problem 08/29/2019 [facility] Active 2019-08-29 23:30:43 [facility] Hyperlipidemia (disorder) Hype rlipidemia (disorder) Active Problem 08/29/2019 [facility] Problem Active 2019-08-29 23:3 0:43 [facility] Hypothyroidism (disorder) Hypo thyroidism (disorder) Active Problem 08/29/2019 [facility] Problem Active 2019-08-29 23:3 0:43 [facility] Hysterectomy (procedure) Hyst erectomy (procedure) Active Problem 08/29/2019 [facility] Problem Active 2019-08-29 23:30:[address] [facility] Cystopexy (procedure) Cyst opexy (procedure) Active Problem 08/29/2019 [facility] Problem Active 2019-08-29 23:30:[address] [facility] ANESTHESIA OF SKIN ANES THESIA OF SKIN Active [facility] Diagnosis Active 2019-08-28 15:10:00 [facility] Allergies, Adverse Reactions, Alerts Allergy Name Allergy Type Status Severity Reaction(s) Onset Date Inacti ve Date Treating Clinician Comments Source Atorvastatin Drug Allergy Active Other (See Comments) 00:00:00 Leg cramps [facility] Prednisone Propensity to adverse reactions Active Rash 05-15 00:00:00 [facility] r Codeine Propensity to adverse reactions Active Palp itations 2007-08-20 00:00:00 [facility] Iodine Propensity to adverse reactions Active Hives 2007-08-20 00 :00:00 [facility] codeine codeine Active [facility] iodine iodine Active [facility] predniSONE predniSONE Active [facility] Social History Social Habit Start Date Stop Date Quantity Comments Source Sex Assigned At [facility] Tobacco use and exposure 2020-02-20 00:00:00 2020-02-20 00:00:00 Gregory r used [facility] Alcohol intake 2020-02-20 00:00:00 2020-02-20 00:00:00 Current drinker of alcohol (finding) [facility] Social History 2019-08-27 12:12:14 2019-08-27 12:12:14 [facility] Smoking Status Start Date Stop Date Source Never smoker [facility] Medications Ordered Medication Name Filled Medication Name Start Date Stop Da te Current Medication? Ordering Clinician Indication Dosage Frequency Signature (SIG) Comments Components Source BYSTOLIC 5 mg tablet 2020-02-18 00:00:00 Yes [facility] olmesartan (BENICAR) 20 MG tablet 2020-02-16 00:00:00 Yes 20mg Take 20 mg by mouth. [facility] aspirin 81 MG EC tablet 2019-10-21 14:51:48 Yes 81mg QD Take 81 mg by mouth daily. [facility] ALPRAZolam (XANAX) 0.25 MG tablet 2019-10-21 14:51:48 Yes .25mg Take 0.25 mg by mouth every night as needed for Anxiety. [facility] hydrALAZINE (APRESOLINE) 25 MG tablet 2019-10-16 00:00:00 Y es 25mg QD Take 25 mg by mouth nightly. [facility] metoprolol (TOPROL-XL) 50 MG 24 hr tablet 10-13 00:00:00 2020-02-20 00:00:00 No TK 1 T PO QD [facility] simvastatin (ZOCOR) 20 MG tablet 2019-09-25 00:00:00 Yes TK 1 T PO QHS [facility] cloNIDine HCl (CATAPRES) 0.1 MG tablet 2019-09-20 00:00:00 Yes .1mg Take 0.1 mg by mouth every 8 (eight) hours as needed . [facility] Synthroid 2019-08-28 12:30:00 No Notes: (Same as:Levothroid, Synthroid) [facility] Simvastatin 2019-08-28 03:00:00 No Notes: ( Same as: Zocor) [facility] Amlodipine 2019-08-27 16:30:00 No Notes: (S salbador as: Norvasc) [facility] Aspirin 81 MG Chewable Tablet 2019-08-27 16:30:00 No Notes: Take with food. [facility] metoprolol tartrate 2019-08-27 16:30:00 No Notes: (Same as: Lopressor) [facility] valsartan 2019-08-27 16:30:00 No Notes: John Rosario [facility] Saline Flush 0.9% 2019-08-27 15:00:00 No Notes: (Same as: BD Posiflush) [facility] Amlodipine 2019-08-27 12:06:00 Yes 2 .5 mg, PO, Daily, 0 Refill(s) [facility] valsartan 320 mg oral tablet 2019-08-27 12:06:00 Yes 320 mg = 1 tab, PO, Daily, # 30 tab, 0 Refill(s) [facility] Simvastatin 2019-08-27 12:06:00 Yes 20 mg, PO, Bedtime, # 30 tab, 0 Refill(s) [facility] Saline Flush 0.9% 2019-08-27 11:10:00 No Notes: (Same as: BD Posiflush) [facility] NS (Bolus) IV 2019-08-27 08:35:00 No 1,000 mL, 1,000 ml/hr, Infuse Over: 0.5 hr, Route: IV, ONCE, Priority: STAT, Dosing Weight 60.455 kg, Start date: 08/27/19 2:35:00 PECAN CLEANER, Stop date: 08/27/19 2:35:00 PECAN CLE[employer]ER [facility] valsartan (DIOVAN) 320 MG tablet 2019-07-28 00:00:00 2020-02 00:00:00 No TK 1 T PO [facility] levothyroxine (SYNTHROID, LEVOTHROID) 100 MCG tablet 2 00:00:00 Yes TAKE 1 TABLET BY MOUTH DAILY IN THE [facility] Diovan 2012-11-19 15:00:00 No Gregory Coates 160 mg, 1 tab, Route: PO, Drug form: TAB, Daily, Dosing Weight 59.545, kg, Start date: 11/19/12 9:00:00, Duration: 30 day, Stop date: 12/18/12 9:00:00 [facility] Toprol-XL 50 mg oral tablet, extended release 2012-11-19 1 5:00:00 No Gregory Coates 50 mg, 1 tab, Route: PO, Drug form: ERTAB, Daily, Start date: 11/19/12 9:00:00, Duration: 30 day, Stop date: 12/18/12 9:00:00 [facility]ett aspirin 81 mg tablet, chewable 2012-11-19 15:00:00 No Gregory Coates 81 mg, 1 tab, Ro [place]: PO, Drug form: CHEWTAB, Daily, Dosing Weight 59.545, kg, Start date: 11/19/12 9:00:00, Duration: 30 day, Stop date: 12/18/12 9:00:00 [facility] Synthroid 2012-11-19 12:30:00 No Gregory Ramos on 100 microgram, 1 tab, Route: PO, Drug form: TAB, Q630AM, Dosing Weight 59.545, kg, Start date: 11/19/12 6:30:00, Duration: 30 day, Stop date: 12/18/12 6:30:00 [facility] Saline Flush 0.9% 2012-11-19 03:00:00 No Gregory Coates 5 ml, Route: IVP, Drug Form: INJ, Dosing Weight 59.545, kg, Q12H, Start date: 11/18/12 21:00:00, Duration: 30 day, Stop date: 12/18/12 9:00:00 [facility] Motrin 2012-11-18 23:53:00 No Yakelin Jaramillo 400 mg, 1 tab, Route: PO, Drug form: TAB, Q4H, Dosing Weight 59.545, kg, PRN Pain, Start date: 11/18/12 17:53:00, Duration: 30 day, Stop date: 12/18/12 17:52:00 [facility] morphine Sulfate 2012-11-18 17:15:00 No Gregory Coates 2 mg, 1 mL, Route: IV, Drug form: INJ, Q1H, Dosing Weight 59.545, kg, PRN Pain, Start date: 11/18/12 11:15:00, Duration: 30 day, Stop date: 12/18/12 12:14:00 [facility] nitroglycerin SL Tab 2012-11-18 16:13:00 No Gregory Coates 0.4 mg, 1 tab, Route: SL, Drug form: TAB, Q5Min, Dosing Weight 59.545, kg, PRN Chest Pain, Start date: 11/18/12 10:13:00, Duration: 3 doses or times, Stop date: 11/19/12 0:00:00 [facility] Saline Flush 0.9% 2012-11-18 16:13:00 No Gregory Coates 5 ml, Route: IVP, Drug Form: INJ, Dosing Weight 59.545, kg, PRN, PRN Line Flush, Start date: 11/18/12 10:13:00, Duration: 30 day, Stop date: 12/18/12 11:12:00 [facility] influenza virus vaccine, inactivated 2012-11-18 15:00:00 No SYSTEM SYSTEM 0.5 mL, Route: IM, Drug Form : INJ, Start date: 11/18/12 9:00:00, Stop date: 11/18/12 9:00:00 [facility] Metoprolol Tartrate 50 mg oral tablet 2012-11-18 13:02:44 Yes Gregory Coates 50 mg, 1 tab, PO, Daily, Substitut ion Allowed [facility] K-Dur 20 2012-10-22 03:43:00 No Asem Souman 40 mEq, 2 tab, Route: PO, Drug form: ERTAB, ONCE, Dosing Weight 61.364, kg, Priority: STAT, Start date: 10/21/12 21:43:00, Stop date: 10/21/12 21:43:00 [facility] magnesium sulfate 2012-10-22 03:43:00 No Asem Souman 1 gm, 100 mL, Route: IV, Drug form: INJ, ONCE, Dosing Weight 61.364, kg, Priority: STAT, Start date: 10/21/12 21:43:00, Stop date: 10/21/12 21:43:00 [facility] Xanax 0.5 mg oral tablet 2012-10-22 02:12:00 No Asem So uman 0.5 mg, 2 tab, Route: PO, Drug form: TAB, ONCE, Dosing Weight 61.364, kg, Start date: 10/21/12 20:12:00, Stop date: 10/21/12 20:12:00 [facility] metoprolol tartrate 2012-10-22 02:12:00 No Asem Souman 25 mg, 1 tab, Route: PO, Drug form: TAB, ONCE, Dosing Weight 61.364, kg, Priority: STAT, Start date: 10/21/12 20:12:00, Stop date: 10/21/12 20:12:00 [facility] Saline Flush 0.9% 2012-10-22 02:10:00 No Mayda Khan 5 mL, Route: IVP, Drug Form: INJ, Dosing Weight 61.364, kg, Q8H, PRN Line Flush, Start date: 10/21/12 20:10:00, Duration: 30 day, Stop date: 11/20/12 20:09:00, Administer at least once every 8 hoursAdminister at least once every [address] [facility] Vital Signs Vital Name Observation Time Observation Value Comments Source Systolic blood pressure 2020-02-20 06:30:00 145 mm[Hg] [facility] Diastolic blood pressure 2020-02-20 06:30:00 82 mm[Hg] [facility] Heart rate 2020-02-20 06:30:00 52 /min [facility] Respiratory rate 2020-02-20 06:30:00 18 /min [facility] Oxygen saturation in Arterial blood by Pulse oximetry 02-19 05:48:00 99 /min [facility] r Body temperature 2020-02-20 01:48:00 36.83 Loly [facility] Body height 2020-02-20 01:48:00 152.4 cm [facility] Body weight 2020-02-20 01:48:00 58.968 kg [facility] BMI 2020-02-20 01:48:00 25.39 kg/m2 [facility] Temperature Oral (F) 2019-08-27 22:08:00 97.7 F [facility] Heart Rate 2019-08-27 22:08:00 [facility] Respitory Rate 2019-08-27 22:08:00 Memori al [facility] Systolic (mm Hg) 2019-08-27 22:08:00 James rial [place] Diastolic (mm Hg) 2019-08-27 22:08:00 Mem o[facility] [place] Temperature Oral (F) 2019-08-27 17:26:00 98.3 F [facility] Heart Rate 2019-08-27 17:26:00 [facility] Respitory Rate 2019-08-27 17:26:00 [facility] [place] Systolic (mm Hg) 2019-08-27 17:26:00 James rial Lew Diastolic (mm Hg) 2019-08-27 17:26:00 Mem orial [facility] Systolic (mm Hg) 2019-08-27 13:51:00 James rial [place] Diastolic (mm Hg) 2019-08-27 13:51:00 Mem orial [facility] Temperature Oral (F) 2019-08-27 13:51:00 98 F [facility] Heart Rate 2019-08-27 13:51:00 [facility] Respitory Rate 2019-08-27 13:51:00 [facility] Height 2019-08-27 12:09:00 154.94 cm [facility] Weight 2019-08-27 12:09:00 [facility] BMI Calculated 2019-08-27 12:09:00 [facility] [place] Height 2019-08-27 08:17:00 154.94 cm [facility] BMI Calculated 2019-08-27 08:17:00 [facility] Weight 2019-08-27 08:17:00 [facility] Height 2012-12-05 12:42:00 154.94 cm [facility] Weight 2012-12-05 12:42:00 [facility] Systolic (mm Hg) 2012-11-19 13:30:00 James rial Lew Respitory Rate 2012-11-19 13:30:00 [facility] [place] Temperature Oral (F) 2012-11-19 13:30:00 97.8 F [facility] Diastolic (mm Hg) 2012-11-19 13:30:00 Mem orial [facility] Systolic (mm Hg) 2012-11-19 09:00:00 James rial [facility] Diastolic (mm Hg) 2012-11-19 09:00:00 Mem orial [facility] Systolic (mm Hg) 2012-11-19 07:00:00 James rial [place] Diastolic (mm Hg) 2012-11-19 07:00:00 Mem orial [facility] Temperature Oral (F) 2012-11-19 01:09:00 97.2 F [facility] Temperature Oral (F) 2012-11-18 12:23:00 97 F [facility] Weight 2012-11-18 11:48:00 [facility] Height 2012-11-18 11:48:00 154.94 cm [facility] Weight 2012-10-22 01:16:00 [facility] Height 2012-10-22 01:16:00 154.94 cm [facility] Procedures Procedure Date / Time Performed Performing Clinician [facility] REPORT OF PROCEDURE - ENDOSCOPY SCAN 2020-02-24 16:31:11 Pro vider, Default Scanning [facility] COMPREHENSIVE METABOLIC PANEL 2020-02-20 03:44:00 Moises Lagunas [facility] TROPONIN I 2020-02-20 03:44:00 Moises Lagunas [facility] CBC W/PLT COUNT & AUTO DIFFERENTIAL 2020-02-20 03:44:00 Moises Lagunas [facility] ECG 12-LEAD 2020-02-20 01:58:15 Unknown, Hl7 Doctor [facility] ED ECG INTERPRETATION 2020-02-20 01:48:41 Moises Lagunas [facility] BASIC METABOLIC PANEL (7) 2019-10-21 13:33:00 Quinton Moody [facility] CBC W/PLT COUNT & AUTO DIFFERENTIAL 2019-10-21 13:33:00 Merle Moody Simi [facility] CT BRAIN WITHOUT IV CONTRAST 2019-10-21 11:42:00 Quinton Moody [facility] REPORT OF PROCEDURE - ENDOSCOPY SCAN 2019-10-19 17:20:15 Pro vider, Default Scanning [facility] XR CHEST 1 VIEW PORTABLE/BEDSIDE 2019-10-16 00:56:00 Soraida Vann [facility] ED ECG INTERPRETATION 2019-10-16 00:49:48 Ajay Vann [facility] ECG 12-LEAD 2019-10-16 00:21:59 Unknown, Hl7 Doctor [facility] Abdominal hysterectomy and excision of periuterine tissue [facility] Suspension of bladder [facility] Abdominal hysterectomy and excision of periuterine tissue [facility] Suspension of bladder [facility] Plan of Care Planned Activity Planned Date Details Comments Source Future Scheduled Test 2020-05-17 00:00:00 INFLUENZA VACCINE (#1) [code = INFLUENZA VACCINE (#1)] [facility] 2019-09-16 00:00:00 Medicare IPPE (WEL COME TO MEDICARE) [code = Medicare IPPE (WELCOME TO MEDICARE)] [facility] Future Scheduled Test 1950 00:00:00 Screening for nanda gnant neoplasm of breast (procedure) [code = 116437954] [facility] Future Scheduled Test 1950 00:00:00 Screening for nanda gnant neoplasm of colon (procedure) [code = 066222767] [facility] Encounters Start Date/Time End Date/Time Encounter Type Admission Type [facility] Care Department Encounter ID Source 2019-08-27 02:08:34 2019-08-27 20:00:00 Outpatient Mathieu Lopez [facility] [id number] 2019-08-27 04:52:00 2019-08-27 04:52:00 Outpatient E [id number] Results Test Description Test Time Test Comments Results Result Comments Source CT CERVICAL SPINE WO 2020-07-01 13:27:00 [facility] 1950 Sex: F [place] [address] Patient Name: YASSINE HERNANDEZ MR #: [id number] : 1950 Age/Sex: 69/F Req #: [id number] Adm Physician: Ordered by: Hugo Waterman MD Report #: [id number] Location: Room/Bed: Procedure: [id number] CT/CT CERVICAL SPINE WO Exam Date: 07/01/20 Exam Time: 1300 REPORT STATUS: Signed EXAMINATION: Head and cervical spine CT without contrast. HISTORY: Status post fall, head trauma, head and neck pain. COMPARISON: None. TECHNIQUE: Multidetector axial images were obtained without contrast from the foramen magnum to the vertex and through the cervical spine. Dose modulation, iterative reconstruction, and/or weight based adjustment of the mA/kV was utilized to reduce the radiation dose to as low as reasonably achievable. HEAD CT FINDINGS: Skull/scalp: Right superior occipitoparietal scalp swelling/hematoma without underlying fractures. Parenchyma: Physiologic calcification of the globi pallidi. Otherwise no areas of abnormal density. No mass, hemorrhage or CT evidence of acute vascular insult. Brain volume: Normal for age. Ventricles: No hydroceph alus or displacement. Arteries: No density suggestive of thrombus. Dural sinuses: No abnormal density. Extra-axial spaces: No abnormal density. Foramen magnum: No mass, Chiari malformation, or basilar invagination. Sella: No obvious mass. Paranasal/mastoid sinuses: Imaged portions unremarkable. CERVICAL SPINE CT FINDINGS: Alignment:Normal alignment and lordosis. Soft tissues: The thyroid gland is not well visualized, it may be hypoattenuating or surgically absent, correlation with past medical history is advised. Vertebrae: Normal height and density. No acute fracture, infection or neoplasm. Degenerative changes: C1-C2: Normal C2-C3: Interbody and posterior fusion. No stenosis. C3-C4: Bilateral facet arthrosis without stenosis. C4-C5: Normal C5-C6: Small disc osteophyte compresses formation and uncovertebral hypertrophy is minimal left. Moderate left foraminal stenosis. C6-C7: Mild uncovertebral and facet hydronephrosis. Minimal foramina narrowing. C7-T1: Normal IMPRESSION: Head CT: 1. No acute postraumatic intracranial hemorrhage. 2. Small right parieto-occipital scalp swelling/hematoma without underlying fractures. Cervical spine CT: 1. No acute fractures or dislocations. 2. Chronic degenerative changes as described. Note: Acute post traumatic spinal cord, vascular or ligamentous injury cannot adequately be assessed with CT. Signed by: Dr. Anne Andujar M.D. on 07/01/2020 1:34 PM Dictated By: ANNE ANDUJAR MD 33 Transcribed By: ZINA on 07/01/201333 COPY TO: HUGO WATERMAN MD CT BRAIN WO 2020-07-01 13:27:00 [facility] 1950 Sex: F [place] [address] Patient Name: YASSINE HERNANDEZ MR #: [id number] : 1950 Age/Sex: 69/F Req #: [id number] [facility] Physician: Ordered by: Hugo Waterman MD Report #: [id number] Location: Room/Bed: Procedure: [id number] CT/CT BRAIN WO Exam Date: 07/01/20 Exam Time: 1300 REPORT STATUS: Signed EXAMINATION: Head and cervical spine CT without contrast. HISTORY: Status post fall, head trauma, head and neck pain. COMPARISON: None. TECHNIQUE: Multidetector axial images were obtained without contrast from the foramen magnum to the vertex and through the cervical spine. Dose modulation, iterative reconstruction, and/or weight based adjustment of the mA/kV was utilized to reduce the radiation dose to as low as reasonably achievable. HEAD CT FINDINGS: Skull/scalp: Right superior occipitoparietal scalp swelling/hematoma without underlying fractures. Parenchyma: Physiologic calcification of the globi pallidi. Otherwise no areas of abnormal density. No mass, hemorrhage or CT evidence of acute vascular insult. Brain volume: Normal for age. Ventricles: No hydrocephalus or displacement. Arteries: No density suggestive of thrombus. Dural sinuses: No abnormal density. Extra-axial spaces: No abnormal density. Foramen magnum: No mass, Chiari malf ormation, or basilar invagination. Sella: No obvious mass. Paranasal/mastoid sinuses: Imaged portions unremarkable. CERVICAL SPINE CT FINDINGS: Alignment:Normal alignment and lordosis. Soft tissues: The thyroid gland is not well visualized, it may be hypoattenuating or surgically absent, correlation with past medical history is advised. Vertebrae: Normal height and density. No acute fracture, infection or neoplasm. Degenerative changes: C1-C2: Normal C2-C3: Interbody and posterior fusion. No stenosis. C3-C4: Bilateral facet arthrosis without stenosis. C4-C5: Normal C5-C6: Small disc osteophyte compresses formation and uncovertebral hypertrophy is minimal left. Moderate left foraminal stenosis. C6-C7: Mild uncovertebral and facet hydronephrosis. Minimal foramina narrowing. C7-T1: Normal IMPRESSION: Head CT: 1. No acute postraumatic intracranial hemorrhage. 2. Small right parieto-occipital scalp swelling/hematoma without underlying fractures. Cervical spine CT: 1. No acute fractures or dislocations. 2. Chronic degenerative changes as described. Note: Acute post traumatic spinal cord, vascular or ligamentous injury cannot adequately be assessed with CT. Signed by: Dr. Anne Andujar M.D. on 07/01/2020 1:34 PM Dictated By: ANNE ANDUJAR MD Electronically S igned By: ANNE ANDUJAR MD on 07/01/201333 Transcribed By: ZINA on 07/01/204 COPY TO: HUGO WATERMAN MD ECG 12 lead 2020-02-23 07:21:20 Interface, [place] xternal Ris In - 02/23/2020 7:21 AM CDTVentricular Rate 51 BPMAtrial Rate 51 BPMP-R Interval 194 msQRS Duration 96 msQ-T Interval 450 msQTC Calculation(Bazett) 414 msP Franklin 76 degreesR Franklin - 20 degreesT Franklin -10 degreesSinus bradycardiaVoltage criteria for left ventricular hypertrophyNonspecific ST and T wave abnormalityAbnormal ECGWhen compared with ECG of 16-OCT-2019 00:21,No significant change was foundConfirmed by MD JANIE, THELMA Stone ([id number]) on 02/23/2020 7:21:18 AM [facility] Troponin I 2020-02-20 04:25:00 Test Item Troponin I (test code = 43759-2) <0.01 0-0.03 ARIADNE (test code = ARIADNE) Troponin I (TnI) levels must be interpreted in the context of the presenting symptoms and the clinical findings. Elevated TnI levels indicate myocardial damage, but are not specific for ischemic heart disease. Elevated TnI levels are seen in patients with other cardiac conditions (including myocarditis and congestive heart failure), and slight TnI elevations occur in patients with other conditions, including sepsis, renal failure, acidosis, acute neurological disease, and persistent tachyarrhythmia.Head Custodian ID - LUPILLO W Lab Interpretation (test code = 99933-1) Normal [facility] Center[facility] [id number] 04:25:00* Test Item Value Reference Range Interpretation Comments TROPONIN I (BEAKER) (test code = 397) < ng/mL 0.00-0.03 Troponin I (TnI) levels must be interpreted in the context of the presenting sym ptoms and the clinical findings. Elevated TnI levels indicate myocardial damage, but are not specific for ischemic heart disease. Elevated TnI levels are seen in patients with other cardiac conditions (including myocarditis and congestive h eart failure), and slight TnI elevations occur in patients with other conditions , including sepsis, renal failure, acidosis, acute neurological disease, and per sistent tachyarrhythmia.Head Custodian ID - LUPILLO WComprehensive metabolic panel 2020-02-20 04:18:00* Test Item Value Reference Range Interpretation Comments Protein, Total (test code = 2885-2) 7.6 6.0- 8.3 gm/dL Albumin (test code = 03689-4) 4.3 g/dL 3.5-5 Alkaline Phosphatase (test code = 6768-6) 84 U/L 40-150 Total Bilirubin (test code = 1974-2) 0.3 mg/dL 0.2-1.2 Sodium (test code = 2951-2) 139 meq/L 136-145 Potassium (test code = 2823-3) 3.7 meq/L 3.5-5.1 Chloride (test code = 2075-0) 103 meq/L 98-107 CO2 (test code = 8-9) 27 meq/L 22-29 BUN (test code = 3094-0) 19 mg/dL 7-21 Creatinine (test code = 2160-0) 0.74 mg/dL 0.57-1.25 Glucose (test code = 2345-7) 104 mg/dL 70-105 Calcium (test code = 25948-1) 10.1 mg/dL 8.4-10.2 AST (test code = 1920-8) 18 U/L 5-34 ALT (test code = 1742-6) 17 U/L 6-55 EGFR (test code = 33279-2) 77 mL/min/1.73 sq m ESTIMATED GFR IS NOT ACCURATE CREATININE CLEARANCE IN PREDICTING GLOMERULAR FILTRATION RATE. ESTIMATED GFR IS NOT APPLICABLE FOR DIALYSIS PATIENTS. ARIADNE (test code = ARIADNE) Head Custodian ID - LUPILLO Menon [facility] CenterCOMPREHENSIVE METABOLIC [id number] 04:18:00* Test Item Value Reference Range Interpretation Comments TOTAL PROTEIN (BEAKER) (test code = 770) 7.6 gm/dL 6.0-8.3 ALBUMIN (BEAKER) (test code = 1145) 4.3 g/dL 3.5-5.0 ALKALINE PHOSPHATASE (BEAKER) (test code = 346) 84 U/L 40-150 BILIRUBIN TOTAL (BEAKER) (test code = 377) 0.3 mg/dL 0.2-1.2 SODIUM (BEAKER) (test code = 381) 139 meq/L 136-145 POTASSIUM (BEAKER) (test code = 379) 3.7 meq/L 3.5-5.1 CHLORIDE (BEAKER) (test code = 382) 103 meq/L 98-107 CO2 (BEAKER) (test code = 355) 27 meq/L 22-29 BLOOD UREA NITROGEN (BEAKER) (test code = 354) 19 mg/dL 7-21 CREATININE (BEAKER) (test code = 358) 0.74 mg/dL 0.57-1.25 GLUCOSE RANDOM (BEAKER) (test code = 652) 104 mg/dL 70-105 CALCIUM (BEAKER) (test code = 697) 10.1 mg/dL 8.4-10.2 AST (SGOT) (BEAKER) (test code = 353) 18 U/L 5-34 ALT (SGPT) (BEAKER) (test code = 347) 17 U/L 6-55 EGFR (BEAKER) (test code = 1092) 77 mL/min/1.73 sq m ESTIMATED GFR IS NOT ACCURATE CREATININE CLEARANCE IN PREDICTING GLOMERULAR FILTRATION RATE. ESTIMATED GFR IS NOT APPLICABLE FOR DIALYSIS PATIENTS. Head Custodian ID - LUPILLO [facility] with platelet count + automated [id number] 04:02:00 * Test Item Value Reference Range Interpretation Comments WBC (test code = 6690-2) 10.8 3.5- 10.5 K/L H RBC (test code = 789-8) 4.21 3.93- 5.22 M/L MCHC (test code = 786-4) 32.7 32.2- 35.5 GM/DL Hematocrit (test code = 4544-3) 38.8 % 34.1-44.9 MCV (test code = 787-2) 92.2 fL 79.4-94.8 MCH (test code = 785-6) 30.2 pg 25.6-32.2 RDW (test code = 788-0) 12.2 % 11.7-14.4 Platelets (test code = 777-3) 296 150- 450 K/CU MM MPV (test code = 82157-3) 9.5 fL 9.4-12.3 nRBC (test code = 413) 0 0- 0 /100 WBC % Neutros (test code = 429) 52 % % Lymphs (test code = 430) 36 % % Monos (test code = 431) 8 % % Eos (test code = 432) 4 % % Baso (test code = 437) 1 % # Neutros (test code = 670) 5.62 1.56- 6.13 K/L # Lymphs (test code = 414) 3.90 1.18- 3.74 K/L H # Monos (test code = 415) 0.82 0.24- 0.36 K/L H # Eos (test code = 416) 0.40 0.04- 0.36 K/L H # Baso (test code = 417) 0.05 0.01- 0.08 K/L Immature Granulocytes-Relative (test code = 2801) 0 % 0-1 Lab Interpretation (test code = 33493-9) [facility]O HLBQVSAOKRCC1715-71-15 04:02:00* Test Item Value Reference Range Interpretation Comments WHITE BLOOD CELL COUNT (BEAKER) (test code = 775) 10.8 K/ L 3.5- 10.5 H RED BLOOD CELL COUNT (BEAKER) (test code = 761) 4.21 M/ L 3.93-5 .22 HEMOGLOBIN (BEAKER) (test code = 410) 12.7 GM/DL 11.2-15.7 HEMATOCRIT (BEAKER) (test code = 411) 38.8 % 34.1-44.9 MEAN CORPUSCULAR VOLUME (BEAKER) (test code = 753) 92.2 fL 79. 4-94.8 MEAN CORPUSCULAR HEMOGLOBIN (BEAKER) (test code = 751) 30.2 pg 25.6-32.2 MEAN CORPUSCULAR HEMOGLOBIN CONC (BEAKER) (test code = 752) 32.7 GM/DL 32.2-35.5 RED CELL DISTRIBUTION WIDTH (BEAKER) (test code = 412) 12.2 % 11.7-14.4 PLATELET COUNT (BEAKER) (test code = 756) 296 K/CU MM 150-450 MEAN PLATELET VOLUME (BEAKER) (test code = 754) 9.5 fL 9.4-12 .3 NUCLEATED RED BLOOD CELLS (BEAKER) (test code = 413) 0 /100 WBC 0 -0 NEUTROPHILS RELATIVE PERCENT (BEAKER) (test code = 429) 52 % LYMPHOCYTES RELATIVE PERCENT (BEAKER) (test code = 430) 36 % MONOCYTES RELATIVE PERCENT (BEAKER) (test code = 431) 8 % EOSINOPHILS RELATIVE PERCENT (BEAKER) (test code = 432) 4 % BASOPHILS RELATIVE PERCENT (BEAKER) (test code = 437) 1 % NEUTROPHILS ABSOLUTE COUNT (BEAKER) (test code = 670) 5.62 K/ L 1.56-6.13 LYMPHOCYTES ABSOLUTE COUNT (BEAKER) (test code = 414) 3.90 K/ L 1.18-3.74 H MONOCYTES ABSOLUTE COUNT (BEAKER) (test code = 415) 0.82 K/ L 0. 24-0.36 H EOSINOPHILS ABSOLUTE COUNT (BEAKER) (test code = 416) 0.40 K/ L 0.04-0.36 H BASOPHILS ABSOLUTE COUNT (BEAKER) (test code = 417) 0.05 K/ L 0. 01-0.08 IMMATURE GRANULOCYTES-RELATIVE PERCENT (BEAKER) (test code = 2801) 0 % 0-1 ECG/EKG Xulsrbmhnpgztu8545-26-70 01:48:41* Test Item Value Reference Range Interpretation Comments ARIADNE (test code = ARIADNE) Moises Lagunas MD 02/29/2020 6:18 AMECG/EKG InterpretationDate/Time: 02/29/2020 6:17 AMPerformed by: Moises Lagunas MDAuthorized by: Moises Lagunas MD The ECG was interpreted by ED physician. The ECG is interpreted as sinus bradycardia. Conduction: conduction normal. ST segments normal. T-wave inversion in lead(s) III and aVF. T-wave flattening in lead(s) V1, V2 and V3. [place] is normal. Clinical Impression: abnormal ECGComments: Similar in appearance as 10-05 Lab Interpretation (test code = 76686-9) Abnormal [facility] Metabolic [id number] 14:42:00* Test Item Value Reference Range Interpretation Comments Sodium (test code = 2951-2) 143 meq/L 136-145 Potassium (test code = 2823-3) 4.8 meq/L 3.5-5.1 Chloride (test code = 2075-0) 110 meq/L 98-107 H CO2 (test code = 8-9) 25 meq/L 22-29 BUN (test code = 3094-0) 14 mg/dL 7-21 Creatinine (test code = 2160-0) 0.69 mg/dL 0.57-1.25 Glucose (test code = 2345-7) 101 mg/dL 70-105 Calcium (test code = 82790-1) 9.9 mg/dL 8.4-10.2 EGFR (test code = 44216-0) 84 mL/min/1.73 sq m ESTIMATED GFR IS NOT ACCURATE CREATININE CLEARANCE IN PREDICTING GLOMERULAR FILTRATION RATE. ESTIMATED GFR IS NOT APPLICABLE FOR DIALYSIS PATIENTS. ARIADNE (test code = ARIADNE) Head Custodian ID - AIDANBocadaperator ID - MARILIN M Lab Interpretation (test code = 69579-4) [facility] [id number] 14:42:00* Test Item Value Reference Range Interpretation Comments SODIUM (BEAKER) (test code = 381) 143 meq/L 136-145 POTASSIUM (BEAKER) (test code = 379) 4.8 meq/L 3.5-5.1 CHLORIDE (BEAKER) (test code = 382) 110 meq/L 98-107 H CO2 (BEAKER) (test code = 355) 25 meq/L 22-29 BLOOD UREA NITROGEN (BEAKER) (test code = 354) 14 mg/dL 7-21 CREATININE (BEAKER) (test code = 358) 0.69 mg/dL 0.57-1.25 GLUCOSE RANDOM (BEAKER) (test code = 652) 101 mg/dL 70-105 CALCIUM (BEAKER) (test code = 697) 9.9 mg/dL 8.4-10.2 EGFR (BEAKER) (test code = 1092) 84 mL/min/1.73 sq m ESTIMATED GFR IS NOT ACCURATE CREATININE CLEARANCE IN PREDICTING GLOMERULAR FILTRATION RATE. ESTIMATED GFR IS NOT APPLICABLE FOR DIALYSIS PATIENTS. Head Custodian ID - AcumentricsIANGOperator ID - MARILIN [facility] W/PLT COUNT & AUTO DIFFERENTIAL 2019-10-21 13:49:00* Test Item Value Reference Range Interpretation Comments WHITE BLOOD CELL COUNT (BEAKER) (test code = 775) 7.5 K/ L 3.5- 10.5 RED BLOOD CELL COUNT (BEAKER) (test code = 761) 4.57 M/ L 3.93-5 .22 HEMOGLOBIN (BEAKER) (test code = 410) 14.1 GM/DL 11.2-15.7 HEMATOCRIT (BEAKER) (test code = 411) 42.0 % 34.1-44.9 MEAN CORPUSCULAR VOLUME (BEAKER) (test code = 753) 91.9 fL 79. 4-94.8 MEAN CORPUSCULAR HEMOGLOBIN (BEAKER) (test code = 751) 30.9 pg 25.6-32.2 MEAN CORPUSCULAR HEMOGLOBIN CONC (BEAKER) (test code = 752) 33.6 GM/DL 32.2-35.5 RED CELL DISTRIBUTION WIDTH (BEAKER) (test code = 412) 12.4 % 11.7-14.4 PLATELET COUNT (BEAKER) (test code = 756) 298 K/CU MM 150-450 MEAN PLATELET VOLUME (BEAKER) (test code = 754) 9.5 fL 9.4-12 .3 NUCLEATED RED BLOOD CELLS (BEAKER) (test code = 413) 0 /100 WBC 0 -0 NEUTROPHILS RELATIVE PERCENT (BEAKER) (test code = 429) 44 % LYMPHOCYTES RELATIVE PERCENT (BEAKER) (test code = 430) 44 % MONOCYTES RELATIVE PERCENT (BEAKER) (test code = 431) 7 % EOSINOPHILS RELATIVE PERCENT (BEAKER) (test code = 432) 4 % BASOPHILS RELATIVE PERCENT (BEAKER) (test code = 437) 1 % NEUTROPHILS ABSOLUTE COUNT (BEAKER) (test code = 670) 3.29 K/ L 1.56-6.13 LYMPHOCYTES ABSOLUTE COUNT (BEAKER) (test code = 414) 3.29 K/ L 1.18-3.74 MONOCYTES ABSOLUTE COUNT (BEAKER) (test code = 415) 0.49 K/ L 0. 24-0.36 H EOSINOPHILS ABSOLUTE COUNT (BEAKER) (test code = 416) 0.32 K/ L 0.04-0.36 BASOPHILS ABSOLUTE COUNT (BEAKER) (test code = 417) 0.05 K/ L 0. 01-0.08 IMMATURE GRANULOCYTES-RELATIVE PERCENT (BEAKER) (test code = 2801) 0 % 0-1 CT, BRAIN, WITHOUT IXQNILMF1504-26-29 11:42:00Reason for exam:->EYE PAINWhat is the patient's sedation requirement?->No SedationFINAL REPORT CT, BRAIN, WITHOUT CONTRAST INDICATION: EYE PAINEYE PAIN, FACIAL NUMBNESS TECHNIQUE: Noncontrast axial imaging [...] of the white matter suggests chronic microvascular disease.Midline structures: Normally positioned.Cerebellum and b rainstem: Commensurate volume loss.Ventricles: Normal volume.Extra-axial spaces: Unremarkable. Calvarium and skull base: Intact.Paranasal sinuses and mastoid air cells: Visible chambers are clear.Orbital contents: Included portions unremark able. Additional findings: None. IMPRESSION: Chronic involutional changes with out acute intracranial abnormality. If there is persistent clinical concern for intracranial pathology, MR examination is recommended for further characterizati on. Signed: JR Jiménez Robert MDReport Verified Date/Time: 10/21/2019 11 :42:31 Reading Location: [address] Neuro Reading Room Electronically marybel d by: CRICKET JIMÉNEZ on 10/21/2019 11:[address] brain without IV contrast 2019-10-21 11:42:00Interface, External Ris In - 10/21/2019 11:[address], BRAIN, WITHOUT CONTRAST INDICATION: EYE PAINEYE PAIN, FACIAL NUMBNESS TECHNIQUE: Noncontrast axial imaging [...] of the white matter suggests chronic microvascular disease.Midline structures: Normally positioned.Cerebellum and brainstem: Commensurate volume loss.Ventricles: Normal volume.Extra-axial spaces: Unremarkable. Calvarium and skull base: Intact.Paranasal sinuses and mastoid air cells: Visible chambers are clear.Orbital contents: Included portions unremarkable. Additional findings: N one. IMPRESSION: Chronic involutional changes without acute intracranial abnor mality. If there is persistent clinical concern for intracranial pathology, MR denton sepinozaation is recommended for further characterization. Signed: JR Jiménez Robert MDReport Verified Date/Time: 10/21/2019 11:42:31 Reading Location: [address] Neuro Reading Room [facility] 1 [facility]IEW, NON DEPT 2019-10-16 01:12:00Reason for exam:->PALPITATIONSFINAL REPORT INDICATION: PALPITATIONS COMPARISON: 01/21/2006 TECHNIQUE: Single frontal view of the chest. FINDINGS: Lungs and pleura: Mildly hypoinflated lungs without consolidation. No effusion.Heart and mediastinum: Normal heart size. Unremarkable mediastinal contours.Osseous structures: No acute abnormality.Other: None. IMPRESSION: No acute intrathoracic abnormality. Marybel d: Katharine Calle Verified Date/Time: 10/16/2019 01:12:57 Electro nically signed by: KATHARINE CALLE MD on 10/16/2019 01:12 AM XR chest 1 view portable / [id number] 01:12:00Interface, External Ris In - 10/16/2019 1:15 AM CSTFINAL REPORT INDICATION: PALPITATIONS COMPARISON: 01/21/2006 TECHNIQUE: Single frontal view of the chest. FINDINGS: Lungs and pleura: Mildly hypoinflated lungs without consolidation. No effusion.Heart and mediastinum: Normal heart size. Unremarkable mediastinal contours.Osseous structures: No acute abnormality.Other: None. IMPRESSION: No acute intrathoracic abnormality. Signed: Katharine Calle Verified Date/Time: 10/16/2019 01:12:57 [facility] [id number] 21:53:00<0.02[facility] XYIVWRR6722-76-99 14:42:00<0.02[facility] FxndmtmSWMYJP2333-75-91 14:42:74869Jjwjjolk HxzgedzDEBBBB7162-66-89 14:42:96518 [facility] AaiukweUVFYXV9791-44-04 14:42:0049[facility] TajihbaENEUXS5808-58-46 14:42:00* Test Item Value Reference Range Interpretation Comments CHD Risk (test code = CHD Risk) 2.92 1 3.90-5.80 [facility] GjmozptQLEEYN5406-68-13 14:42:0064[facility] EzneiqmJWBEER4827-52-73 14:42:00* Test Item Value Reference Range Interpretation Comments VLDL (test code = VLDL) 30 1 [facility] [id number] 09:14:00Clear (08/27/19 3:14 AM) [facility] AUFEJ7560-79-83 09:14:00* Test Item Value Reference Range Interpretation Comments UA Spec Grav (test code = UA Spec Grav) 1.005 1 [facility] [id number] 09:14:00* Test Item Value Reference Range Interpretation Comments UA pH (test code = UA pH) 7.0 1 5.0-8.0 [facility] [id number] 09:14:00Negative *NA*(08/27/19 3:14 AM)[facility] TZMIY1134-81-01 09:14:00Small *ABN*(08/27/19 3:14 AM)[facility] WQCFN2087-55-44 09:14:00Negative (08/27/19 3:14 AM) [facility] ZGQPG6728-11-75 09:14:00Negative (08/27/19 3:14 AM) [facility] NRWBG6092-92-12 09:14:00<1[facility] UBIMF6143-77-29 09:14:001[facility]annCARDIAC QUEKYGB2121-23-03 08:43:0012 [facility] IEUVTSR3981-28-76 08:43:93931Tpiqbode HermannCARDIAC NPPBGNA4703-98-90 08:43:00<0.02[facility]annCHEM WMWGZ1887-52-29 08:43:06288 [facility]annCHEM LQTLQ4289-59-42 08:43:0017[facility]annCHEM PANEL 2019-08-27 08:43:000.68[facility]annCHEM YAZXG9334-95-71 08:43:41895Dbfegrzh HermannCHEM LNGPH8445-00-88 08:43:003.5[facility]annCHEM YTBHH6733-50-70 08:43:71721Keprhbbe HermannCHEM ONYMT8631-47-43 08:43:0028[facility]annCHEM RTPVQ2021-71-75 08:43:009.0[facility]annCHEM RQJWM5270-37-85 08:43:007.5 [facility]annCHE[facility] XTNOZ0361-99-81 08:43:003.6[facility]annCHEM PANEL 2019-08-27 08:43:0031[facility]annCHEM UMDKJ9993-74-20 08:43:0015[facility]annCHEM CUZAM0941-33-88 08:43:0097[facility]annCHEM LIDUQ3536-50-70 08:43:000.2[facility]annCHEM FSVQX2633-77-94 08:43:0010.5[facility]annCHEM VPEOX2394-72-17 08:43:00* Test Item Value Reference Range Interpretation Comments B/C Ratio (test code = B/C Ratio) 25 1 6-25 [facility]annCHE[facility] VDLQP8738-07-67 08:43:003.9[facility]annCHEM PANEL 2019-08-27 08:43:00* Test Item Value Reference Range Interpretation Comments A/G Ratio (test code = A/G Ratio) 0.9 1 0.7-1.6 [facility]annCHE[facility] VJMGL0514-87-40 08:43:0088[facility]annCHEM PANEL 2019-08-27 08:43:002.0[facility] LlbxskhNCTSJTVGTH0682-41-48 08:43:008.5[facility] UmhwqfhMVRVWGQVDP3017-31-20 08:43:004.33[facility] ZzsfkqmVYDLWSAEEC1500-32-70 08:43:0013.6[facility] PvjphyrGOQYGGLSPN8617-53-06 08:43:0039.6[facility] BRDMSFTATX9426-72-05 08:43:0091.4[facility] WwvpexjJFQOZYKJZC3282-71-22 08:43:00* Test Item Value Reference Range Interpretation Comments MCH (test code = MCH) 31.3 pg 27.0-31.0 [facility] YjwiruvFCRTMWINHO7709-34-81 08:43:0034.2[facility]annHEMATOLOGY 2019-08-27 08:43:0012.5[facility] EjrlmopLLXESJWJZV8968-69-95 08:43:20008Tiwflsfc VqpzryiXLXMOTZLAI3521-20-78 08:43:007.7[facility] OgipxafMAZSMWUHQC6994-31-43 08:43:00* Test Item Value Reference Range Interpretation Comments INR (test code = INR) 0.97 1 0.85-1.17 [facility]td[facility]yrOEFKQKOLBM4743-95-36 08:43:00* Test Item Value Reference Range Interpretation Comments PT (test code = PT) 12.7 s 12.0-14.7 [facility] EjorlyvBJWDDRWALZ1572-55-68 08:43:00* Test Item Value Reference Range Interpretation Comments PTT (test code = PTT) 38.6 s 22.9-35.8 [facility] CtoqjmqLKXCHZOCZO4173-72-30 08:43:0036.7[facility]annHEMATOLOGY 2019-08-27 08:43:0046.9[facility] LylgjjeKHXIQYNYUZ6119-55-22 08:43:009.1[facility] LlnkfazOOHAZNVQQK1987-79-92 08:43:006.7[facility] GehtjtdECFPSPVTCA8188-49-24 08:43:000.6[facility] LdvrrpkLKDZVOUIJW2744-56-21 08:43:003.1[facility] MYKHTORKYG1335-23-95 08:43:004.0[facility] UhxydzvZZIOXTNCTP8912-29-33 08:43:000.8 [facility] PxtsxixDQGKGGDFLU7739-31-98 08:43:000.6[facility]annHEMATOLOGY 2019-08-27 08:43:000.1[facility] OadynpsWWRJNINDP3276-95-45 12:40:0092[facility] NxagjqlCENSVJVBN2417-93-80 12:40:56394Imshyzeb TorhdfzBFSARPPFF1809-56-17 12:40:003.9[facility] YtdfdeiVANMUTBPX0558-64-39 12:40:84384Siodrzof [place] XGXYRYMEF0312-27-35 12:40:000.7[facility] CiwxfkrJSSBOWTSA7189-65-49 12:40:0028 [facility] RdidbcaEDBTQJUIK7973-04-91 12:40:39072Bmjwgtec HermannCHEMISTRY 2012-12-05 12:40:0020[facility] MlexhteJLNCTGXKA5140-45-36 12:40:009.7[facility] CkgqznkXRBNMZLGS4548-85-98 12:40:0012.9[facility] IlnnxvjMHRFINCJGU0630-85-26 12:40:78372Paveamvm XviskrdGTRGVYOKWQ1723-32-09 12:40:007.7[facility] MGIDAEQPUY5488-31-80 12:40:00* Test Item Value Reference Range Interpretation Comments MCH (test code = MCH) 30.9 pg 27.0-31.0 N [facility] MzxwgfbRTGAIURBCF7606-23-51 12:40:0033.6[facility] HermannHEMATOLOGY 2012-12-05 12:40:0012.6[facility] YtsqjnbTVCDPGLAGG1127-17-20 12:40:0091.8[facility] AmedcpfYMKAGYMYVF1171-19-12 12:40:0042.1[facility] CqkxyhuNBIEXGXMFL5253-74-50 12:40:004.58[facility] GqwzlgpAFHUDRGFKC3120-10-28 12:40:0014.2[facility] GZQWOAHSDN8899-74-88 12:40:007.6[facility] VvltwlqWCYZSQROXZ3114-19-45 12:40:000.3 [facility] EehtzlzETBYHAXXLR5189-95-90 12:40:000.0[facility] HermannHEMATOLOGY 2012-12-05 12:40:002.9[facility] XmbnukcNFOYYJBDAB9644-97-17 12:40:000.6[facility] DaqhccxTYMRSCQOOQ5335-58-87 12:40:003.6[facility] BmhtaolWPWJGATPOH1395-81-35 12:40:000.4[facility] QsrplxxZBVIUOBQIW3784-73-01 12:40:003.7[facility] FHOSOKIBYL2068-66-56 12:40:008.5[facility] LdnxxnwYILCGVYNLK2227-30-35 12:40:00 38.4[facility] LmjgpmbUUWKVORWCS4466-15-16 12:40:0049.1[facility]annBLOOD BANK GZHNSJQ1797-75-57 12:00:00Negative (11/18/2012 06:00:00) [facility] PUODLGILX1772-70-25 11:50:001.9[facility] ZmjgymdONRZUHSZC5006-25-03 11:50:0012.9 [facility] EghfggrCLDVHQKCJ7941-24-41 11:50:0078[facility] HermannCHEMISTRY 2012-11-18 11:50:88530Tjckudpl WslfhzrVYZUVSMJG9907-24-01 11:50:003.9[facility] SyrjxpwPQQBPHEMX3859-42-27 11:50:000.8[facility] WfekdnvFZWDMJFIP7375-88-18 11:50:0027[facility] QkkcjvmKVZVSXOBT9451-08-11 11:50:0017[facility] OGODEXKIV4328-24-87 11:50:79168Xsrlzyxy HfvktgwWXHWGRJYN9152-82-72 11:50:009.7 [facility] YnbfwqzMAQVBEMBH7446-59-67 11:50:0099[facility] HermannHEMATOLOGY 2012-11-18 11:50:57503Okrtdmgu QhkqemaPSSBIIVXLG0657-40-40 11:50:0012.6[facility] EewzeawGPRISDQZEZ7373-78-93 11:50:009.0[facility] GukqchnIHFQXYCXRW1545-00-51 11:50:004.54[facility] DdfifmiCZBCQSESHS9505-95-03 11:50:0092.2[facility] GGFXTKQLJD9528-85-45 11:50:0033.4[facility] RdznbigMMAQHPZLAZ4978-42-92 11:50:00 14.0[facility] KnljcvvGYWSSOGUHH4266-54-88 11:50:006.8[facility] HermannHEMATOLOGY 2012-11-18 11:50:0041.9[facility] TxiejcgBJKEETTCVJ4828-70-80 11:50:00* Test Item Value Reference Range Interpretation Comments MCH (test code = MCH) 30.8 pg 27.0-31.0 N [facility] CmwxehtHNHVQOPWCR1176-17-88 11:50:00* Test Item Value Reference Range Interpretation Comments PTT (test code = PTT) 33.1 s 22.9-35.8 N [facility] PtjiqodTTBLHMXJXP6663-22-46 11:50:00* Test Item Value Reference Range Interpretation Comments PT (test code = PT) 12.9 s 12.0-14.7 N [facility] OzgrtcgLNVJWZWYZF0738-11-00 11:50:000.95[facility] 2012-11-18 11:50:003.1[facility] MagbuvqPXQPANBPSH3755-50-46 11:50:000.6[facility] PrlvtekEYQFPPAMUR9881-52-31 11:50:000.3[facility] RtethxcDCCINBRVLP1432-34-68 11:50:003.8[facility] WjsksdjPYGBFRXFTH0383-93-50 11:50:008.6[facility] CQVYTHCKNE8592-18-42 11:50:002.8[facility] PzpnnozALGVAASOFJ0062-97-14 11:50:000.5 [facility] UxkkfswMLVBLBHYBZ0626-04-11 11:50:0040.9[facility] 2012-11-18 11:50:0046.2[facility] DptmpavFUPEIHTIZ4209-32-52 02:25:001.7[facility] YxgoyuuSHGNGHTMP6600-27-66 02:25:001.5[facility] BbwhzdzPZNMCECZT8159-11-73 02:25:20112Czpazcvt AjjqtftSZELKGPCZ2161-51-66 02:25:0092[facility] ZUFSCQHXZ9221-71-40 02:25:0012.9[facility] ReptidmXVTPDLGIM7045-92-24 02:25:0023 [facility] BrmcddiTAFVLSKBT1973-54-94 02:25:003.9[facility]annCHEMISTRY 2012-10-22 02:25:25526Nupqdcuv GaibarpKMDLUMGFO8701-67-11 02:25:72087Cnwqsxvs CwmhiskQQQYIQQSN8291-93-34 02:25:009.3[facility] FbrcbehDIYUBHMFP5621-42-54 02:25:0026[facility] KjslwacDTNUGOZJP8810-86-49 02:25:000.7[facility] SWPXKLOGP3449-69-37 02:25:03552Pvjfutuq AfztwbgKITJWNIWI0012-21-33 02:25:0016 [facility] FvzrifbELWFWMEQB4600-57-80 02:25:003.9[facility]annCHEMISTRY 2012-10-22 02:25:003.9[facility] PozhgdgFPOLEEZGY8052-29-89 02:25:0021[facility] SazkybcAQWJNYUVK1856-00-86 02:25:001.0[facility] LhhqqtoGOXMIJQMS9029-26-31 02:25:000.3[facility] HffxljaTVVYXVCEX3434-81-83 02:25:0099[facility] FNWTEZIMK9401-90-91 02:25:0038[facility] GdyhxwsJXOAEJRSN1442-08-18 02:25:007.8 [facility] HzkxjtoJKEIJWDWI6617-01-09 02:25:00<0.02[facility]annCHEMISTRY 2012-10-22 02:25:001.4[facility] SryggngBTDIZTNNJO3440-54-91 02:25:0012.9[facility] UjcqoyuCNLCJKEALZ4162-72-30 02:25:0033.5[facility] YmuqephKTXQDDNFXQ5729-75-36 02:25:53851Nspjfyfb EdqsabzEJZSEKYXOL6099-67-79 02:25:008.4[facility] OKIUIKXCIH6238-49-74 02:25:0013.4[facility] PvkrstmVBZWQRINTZ1693-98-00 02:25:00 4.34[facility] DkxaockESJEUALIOC3940-59-66 02:25:0092.3[facility]annHEMATOLOGY 2012-10-22 02:25:007.5[facility] WrjmayhXERLPKGOHB2340-02-68 02:25:0040.0[facility] KdjxyktRICCQZDFCA6693-41-64 02:25:00* Test Item Value Reference Range Interpretation Comments MCH (test code = MCH) 30.9 pg 27.0-31.0 N [facility] UvshgfoORMCZETQBZ5812-33-35 02:25:000.6[facility]annHEMATOLOGY 2012-10-22 02:25:000.1[facility] AheshleWVKWHOPGAZ1302-72-62 02:25:003.6[facility] ByptieoCWNYKZRZFX4894-44-15 02:25:002.9[facility] JyeuxhqNZOIFNGLCI8274-97-79 02:25:000.7[facility] UqtihxrBASOZHWMAM9586-07-23 02:25:004.1[facility] BDXTXALOWN3080-37-09 02:25:008.3[facility] RqbeidwYJCKHYAAVF6152-36-80 02:25:00 48.4[facility] HjwoiitHHVNRWXTOY0509-66-18 02:25:000.3[facility]annHEMATOLOGY 2012-10-22 02:25:0038.5[facility]
[2020-07-01 15:05] VITALS: BP 130/76
== END 2020-07-01 15:07 | disposition home or self-care (01) ==
LOC: ER 12:30
DX: S00.93XA Contusion of unspecified part of head, initial encounter (principal); W01.0XXA Fall on same level from slipping, tripping and stumbling without subsequent striking against object, initial encounter; Y93.01 Activity, walking, marching and hiking; Y92.008 Other place in unspecified non-institutional (private) residence as the place of occurrence of the external cause
CPT/HCPCS: 70450; 72125; 99284; J3010